=== PATIENT | female | born 1970 ===

== ENCOUNTER 2017-07-31 09:57 | Observation (INO) | payer OTHER ==
[2017-07-31 10:59] LABS: BASO # 0.1 K/uL (0.0-0.2); BASO % 0.9 % (0.0-2.0); EOS # 0.3 K/uL (0.0-0.7); HEMATOCRIT 40.7 % (34.0-47.0); LYMPH # 4.7 K/uL (1.0-4.3); LYMPH % 43.6 % (20.0-40.0); MEAN CELL VOLUME 89.8 fL (81.0-99.0); MEAN CORPUSCULAR HEMOGLOBIN 30.7 pg (27.0-31.0); MEAN CORPUSCULAR HGB CONC 34.2 g/dL (33.0-37.0); MONO % 8.8 % (0.0-10.0); NRBC % 0.1 % (0.0-2.0); RED CELL DISTRIBUTION WIDTH 14.6 % (11.5-14.5); WHITE BLOOD COUNT 10.9 K/uL (4.8-10.8)
[2017-07-31 11:10] LABS: ALB/GLOB RATIO 1.1 (1.0-2.1); ALKALINE PHOSPHATASE 94 U/L (38-126); ALT/SGPT 48 U/L (9-52); AST/SGOT 36 U/L (14-36); BILIRUBIN,TOTAL 0.4 mg/dL (0.2-1.3); BLOOD UREA NITROGEN 11 mg/dL (7-17); CARBON DIOXIDE 24 mmol/L (22-30); CHLORIDE 101 mmol/L (98-107); GFR AFRICAN-AMERICAN > 60; GLUCOSE,RANDOM 180 mg/dL (65-105); POTASSIUM 4.4 mmol/L (3.6-5.2); SODIUM 139 mmol/L (132-148); TOTAL PROTEIN 7.6 g/dL (6.3-8.3)
--- NOTE | 2017-07-31 11:10 | C.PDOC ---
History Of Present Illness 47 y/o female with Hx of Asthma sent by avionics mechanic for evaluation of multiple blisters to hands and feet. pt Patient also reports blurry vision and states she was seen by PMD but is unsure what medication was prescribed to her given antibiotics. pt enedelia historian. reports "had a stroke " a few weeks ago. No other complaints at this time Time Seen by Provider: 07/31/17 10:25 Chief Complaint (Nursing): Abnormal Skin Integrity History Per: Patient History/Exam Limitations: no limitations Onset/Duration Of Symptoms: Days Current Symptoms Are (Timing): Still Present Past Medical History Reviewed: Historical Data, Nursing Documentation, Vital Signs Vital Signs: Last Vital Signs Temp 98 F 07/31/17 16:30 Pulse 72 07/31/17 16:30 Resp 20 07/31/17 16:30 BP 116/73 07/31/17 16:30 Pulse Ox 98 07/31/17 18:29 - Medical History PMH: Arthritis, Asthma, Diabetes Surgical History: Cholecystectomy Family History: States: No Known Family Hx - Social History Hx Tobacco Use: Yes Hx Alcohol Use: No Hx Substance Use: No - Immunization History Hx Tetanus Toxoid Vaccination: No Hx Influenza Vaccination: Yes Hx Pneumococcal Vaccination: Yes Review Of Systems Except As Marked, All Systems Reviewed And Found Negative. Musculoskeletal: Positive for: Hand Pain, Foot Pain Physical Exam - Physical Exam Appears: Non-toxic, No Acute Distress Skin: Warm, Dry, Other (Multiple ulcers to bilateral feet and minimal hands) Head: Atraumatic, Normacephalic Eye(s): bilateral: Normal Inspection Oral Mucosa: Moist Throat: Normal, No Erythema Neck: Normal ROM, Supple Chest: Symmetrical Cardiovascular: Rhythm Regular, No Murmur Respiratory: Normal Breath Sounds, No Rales, No Rhonchi, No Wheezing Extremity: Normal ROM, Capillary Refill (<2 seconds) Neurological/Psych: Oriented x3 ED Course And Treatment - Laboratory Results Result Diagrams: 07/31/17 10:56 07/31/17 10:56 ECG: Interpreted By Me, Viewed By Me ECG Rhythm: Sinus Rhythm ECG Interpretation: No Changes From Prior Rate From EC O2 Sat by Pulse Oximetry: 98 (RA) Pulse Ox Interpretation: Normal Medical Decision Making Medical Decision Making: blurry vision - r/o acute intracranial pathology pt enedelia historian. h/o of small ulcers to b/l feet. sent by her avionics mechanic for ? infection. . reached out to dr manzo. unable to provide further history. pt reports "blurry vision" which she was "told she had a stroke" at another institution 146: case discussed with dr gonsalez. will obs for neuro/ podiatry eval. Disposition - Disposition Disposition: HOSPITALIZED Disposition Time: 01:00 Condition: STABLE - Clinical Impression Clinical Impression: Blurry vision, Foot ulcer - Scribe Statement The provider has reviewed the documentation as recorded by the Luzibmeet Nino All medical record entries made by the Jacklyn were at my direction and personally dictated by me. I have reviewed the chart and agree that the record accurately reflects my personal performance of the history, physical exam, medical decision making, and the department course for this patient. I have also personally directed, reviewed, and agree with the discharge instructions and disposition.
--- NOTE | 2017-07-31 12:10 | CT ---
PROCEDURE: CT HEAD WITHOUT CONTRAST. HISTORY: blurry vision COMPARISON: None available. TECHNIQUE: Axial computed tomography images were obtained through the head/brain without intravenous contrast. Coronal and sagittal reconstructed images. Radiation dose: Total exam DLP = 795.01 duenas mGy-cm. This CT exam was performed using one or more of the following dose reduction techniques: Automated exposure control, adjustment of the mA and/or kV according to patient size, and/or use of iterative reconstruction technique. FINDINGS: HEMORRHAGE: No intracranial hemorrhage. BRAIN: No mass effect or edema. No atrophy or chronic microvascular ischemic changes. VENTRICLES: Unremarkable. No hydrocephalus. CALVARIUM: Unremarkable. PARANASAL SINUSES: Unremarkable as visualized. No significant inflammatory changes. MASTOID AIR CELLS: Unremarkable as visualized. No inflammatory changes. OTHER FINDINGS: None. IMPRESSION: No acute intracranial abnormalities. No significant findings to account for the clinical presentation.
[2017-07-31 12:39] LABS: RBC URINE 4 /hpf (0-3); URINE BILIRUBIN NEGATIVE (NEGATIVE); URINE BLOOD NEGATIVE (NEGATIVE); URINE COLOR Yellow (YELLOW); URINE GLUCOSE (UA) NORMAL (Normal); URINE KETONE TRACE mg/dL (NEGATIVE); URINE LEUKOCYTE ESTERASE 1+ Leu/uL (Negative); URINE PROTEIN NEGATIVE (NEGATIVE); URINE UROBILINOGEN NORMAL mg/dL (0.2-1.0); WBC URINE 9 /hpf (0-5)
[2017-07-31] MEDS ORDERED: Piperacillin/Tazobact 3.375 gm 100 ML IVPB ONE (13:05)
[2017-07-31] MEDS: Piperacillin/Tazobact 3.375 GM in Sodium Chloride 100 ML IVPB SCH ×2 (13:10→20:42)
--- NOTE | 2017-07-31 14:11 | CP.PCM.HP ---
Past Patient History - Past Social History Smoking Status: Light Smoker < 10 Cigarettes Daily - PULMONARY Hx Asthma: Yes - MUSCULOSKELETAL/RHEUMATOLOGICAL Hx Arthritis: Yes - PSYCHIATRIC Hx Substance Use: No - SURGICAL HISTORY Hx Cholecystectomy: Yes - ANESTHESIA Hx Anesthesia: Yes Hx Anesthesia Reactions: No Hx Malignant Hyperthermia: No Meds Allergies/Adverse Reactions: Allergies Allergy/AdvReac Type Severity Reaction Status Date / Time No Known Allergies Allergy Verified 07/31/17 10:14 Results - Vital Signs Recent Vital Signs: Last Vital Signs Temp 98.1 F 07/31/17 10:13 Pulse 90 07/31/17 10:13 Resp 18 07/31/17 10:13 BP 127/77 07/31/17 10:13 Pulse Ox 98 07/31/17 12:47 - Labs Result Diagrams: 07/31/17 10:56 07/31/17 10:56
[2017-07-31] MEDS ORDERED: Vancomycin 1 GM 1 GM/250 ML BAG IVPB ONE (15:25)
[2017-07-31] MEDS ORDERED: INSULIN PUMP CONTROLLER MC PRN (17:00)
[2017-07-31 17:09] VITALS: RESP 20
[2017-07-31] MEDS ORDERED: Moxifloxacin IV 400mg/250ml NS 400 MG/250 ML BAG IVPB SCH ×3 (17:15→18:00)
--- NOTE | 2017-07-31 17:48 | CP.PCM.CON ---
History of Present Illness - History of Present Illness History of Present Illness: Mrs. Whipple is a 47-year-old woman with a past medical history of diabetes ( insulin pump placed 3 weeks ago), asthma and previous stroke that had caused diplopia, but that resolved several years ago. However, she developed diplopia again about 3 months ago and was told that the stroke affected her other eye. The patient did not have any other neurological symptoms or complaints. Review of Systems - Review of Systems All systems: reviewed and no additional remarkable complaints except Past Patient History - Past Social History Smoking Status: Light Smoker < 10 Cigarettes Daily - PULMONARY Hx Asthma: Yes - MUSCULOSKELETAL/RHEUMATOLOGICAL Hx Arthritis: Yes - PSYCHIATRIC Hx Substance Use: No - SURGICAL HISTORY Hx Cholecystectomy: Yes - ANESTHESIA Hx Anesthesia: Yes Hx Anesthesia Reactions: No Hx Malignant Hyperthermia: No Meds Allergies/Adverse Reactions: Allergies Allergy/AdvReac Type Severity Reaction Status Date / Time No Known Allergies Allergy Verified 07/31/17 10:14 - Medications Medications: Current Medications Albuterol/Ipratropium (Duoneb 3 Mg/0.5 Mg (3 Ml) Ud) 3 ml INH RQ6 [facility] Home Med (Insulin Pump Controller [Snap Insulin Pump Controller]) 1 each MC PRN PRN PRN Reason: hyperglycemia Home Med (Lactulose [[place]]) 30 ml PO PRN PRN PRN Reason: Constipation Piperacillin Sod/Tazobactam (Sod 3.375 gm/ Sodium Chloride) 100 mls @ 200 mls/ hr IVPB Q8H [facility] Last Admin: 07/31/17 13:10 Dose: 200 mls/hr Moxifloxacin HCl (Avelox Iv 400mg/250ml Ns) 400 mg in 250 mls @ 167 mls/hr IVPB Q24H [facility] Oxycodone/Acetaminophen (Percocet 5/325 Mg Tab) 1 tab PO TID PRN PRN Reason: Pain, moderate (4-7) Stop: 08/03/17 17:01 Pantoprazole Sodium (Protonix Ec Tab) 40 mg PO DAILY [facility] Physical Exam - Constitutional Appears: Well - Head Exam Head Exam: ATRAUMATIC, NORMAL INSPECTION, NORMOCEPHALIC - Eye Exam Eye Exam: EOMI, Normal appearance, PERRL - ENT Exam ENT Exam: Mucous Membranes Moist, Normal Exam - Neck Exam Neck exam: Positive for: Normal Inspection - Respiratory Exam Respiratory Exam: Clear to Auscultation Bilateral, NORMAL BREATHING PATTERN - Cardiovascular Exam Cardiovascular Exam: REGULAR RHYTHM, +S1, +S2 - GI/Abdominal Exam GI & Abdominal Exam: Normal Bowel Sounds, Soft. 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 Otherwise the remaining cranial nerves appear intact. - Psychiatric Exam Psychiatric exam: Normal Affect, Normal Mood - Skin Skin Exam: Abrasion, Dry, Vesicles Results - Vital Signs Recent Vital Signs: Last Vital Signs Temp 98 F 07/31/17 16:30 Pulse 72 07/31/17 16:30 Resp 20 07/31/17 16:30 BP 116/73 07/31/17 16:30 Pulse Ox 99 07/31/17 16:30 - Labs Result Diagrams: 07/31/17 10:56 07/31/17 10:56 - Imaging and Cardiology CT scan - head Status: Image reviewed by me, Report reviewed by me (No acute findings on CT head. 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 The patient has had these symptoms for 3 months, and they have improved someone. I recommend better glucose control and managing risk factors per primary care. No further neurological work-up is recommended at this time in the inpatient setting. She may follow up with an outpatient neurologist, or neuro-real estate investor. Thank you. Status: Chronic Priority: Medium
[2017-07-31] MEDS: Oxycodone/Acetaminophen 5/325 mg Tab PO PRN (20:43)
[2017-07-31] MEDS: Albuterol-Ipratrop 3 mg / 0.5 (3 ml) UD INH SCH (21:07)
[2017-08-01 00:25] VITALS: TEMP 98.1
[2017-08-01] MEDS: Albuterol-Ipratrop 3 mg / 0.5 (3 ml) UD INH SCH ×3 (01:16→13:11)
[2017-08-01] MEDS: Piperacillin/Tazobact 3.375 GM in Sodium Chloride 100 ML IVPB SCH ×2 (04:38→13:13)
[2017-08-01 08:59] VITALS: BP 127/68; O2SAT 99
[2017-08-01] MEDS ORDERED: Pantoprazole 40 mg EC Tab PO SCH (10:00)
[2017-08-01] MEDS: Oxycodone/Acetaminophen 5/325 mg Tab PO PRN (10:50)
--- NOTE | 2017-08-01 15:49 | CARD ---
APPROVED REPORT EKG Measurement Heart [id number] [id number] <Conclusion> Normal sinus rhythm Normal ECG
[2017-08-01 16:43] VITALS: PULSE 63
--- NOTE | 2017-08-01 17:39 | CP.PCM.PN ---
Subjective - Date & Time of Evaluation Date of Evaluation: 08/01/17 Time of Evaluation: 11:00 - Subjective Subjective: Alert and prientedx3, no acute distress. Objective - Vital Signs/Intake and Output Vital Signs (last 24 hours): Temp Pulse Resp BP Pulse Ox 98.1 F 63 20 127/68 99 08/01/17 07:55 08/01/17 08:05 08/01/17 07:55 08/01/17 07:55 08/01/17 07:55 Intake and Output: 08/01/17 08/01/17 06:59 18:59 Intake Total 300 400 Balance 300 400 - Labs Labs: PT 11.7 SECONDS (9.7-12.2) 07/31/17 10:56 INR 1.0 07/31/17 10:56 APTT 33 SECONDS (21-34) 07/31/17 10:56 Assessment and Plan - Assessment and Plan (Free Text) Assessment: Patient admitted with blurred vision seen and examined. Cleared by neurologyst for discharge. Alert and orientedx3, denies acute complaints. Notified with some blisters on the soles of the feet started for 2-3 weeks, not with acute pain. D/W DR Paige, plan to discharge home and follow up with PMD in 1 week. No acute distress noted.
== END 2017-08-01 16:52 | disposition home or self-care (01) ==
LOC: C.ER 09:57 → C.9E 12:41 → C.6T 15:03
PROVIDERS: ADMIT Internal Medicine Critical Care Medicine; ATTEND Internal Medicine Critical Care Medicine
DX: H49.21 Sixth [abducent] nerve palsy, right eye (principal); I69.398 Other sequelae of cerebral infarction; H53.2 Diplopia; E11.621 Type 2 diabetes mellitus with foot ulcer; J45.909 Unspecified asthma, uncomplicated; Z90.49 Acquired absence of other specified parts of digestive tract; M19.90 Unspecified osteoarthritis, unspecified site; Z79.4 Long term (current) use of insulin; Z96.41 Presence of insulin pump (external) (internal); F17.210 Nicotine dependence, cigarettes, uncomplicated
CPT/HCPCS: 70450; 80053; 81001; 82948; 84484; 84703; 85025; 85610; 85730; 93005; 94640; 96365; 99285; G0378; J2543; J7050

== ENCOUNTER 2018-10-25 13:16 | Inpatient (IN) | payer OTHER ==
[2018-10-25] MEDS ORDERED: Sodium Chloride 0.9% 1,000 ML ONE (15:14)
--- NOTE | 2018-10-25 15:23 | C.PDOC ---
History Of Present Illness 48 y/o female presents to the ER complaining of trouble opening right eye which has been present for the past 3 weeks. Patients states that she has normal vision in her right eye only when she covers her left eye. Patient is also com plaining of headache. Denies having fever, chills, and other complaints at this time. Time Seen by Provider: 10/25/18 14:41 Chief Complaint (Nursing): GI Problem History Per: Patient History/Exam Limitations: no limitations Onset/Duration Of Symptoms: Days Current Symptoms Are (Timing): Still Present Severity: Moderate Past Medical History Reviewed: Historical Data, Nursing Documentation, Vital Signs Vital Signs: Last Vital Signs Temp 98.4 F 10/25/18 13:41 Pulse 90 10/25/18 13:41 Resp 18 10/25/18 13:41 BP 101/70 10/25/18 13:41 Pulse Ox 96 10/25/18 13:41 - Medical History PMH: Arthritis, Asthma, Diabetes Surgical History: Cholecystectomy Family History: States: No Known Family Hx - Social History Hx Tobacco Use: Yes Hx Alcohol Use: No Hx Substance Use: No - Immunization History Hx Tetanus Toxoid Vaccination: No Hx Influenza Vaccination: Yes (10/05/2018) Hx Pneumococcal Vaccination: No Review Of Systems Except As Marked, All Systems Reviewed And Found Negative. Constitutional: Negative for: Fever, Chills Eyes: Positive for: Vision Change Neurological: Positive for: Headache. Negative for: Dizziness Physical Exam - Physical Exam Appears: Other (mild distress) Skin: Normal Color, Warm, Dry Head: Atraumatic, Normacephalic Eye(s): right: Other (eye closed with lid lag, normal right pupil deviation, disconjugate gaze in eye, normal vision), left: Normal Inspection Nose: Normal Oral Mucosa: Moist Neck: Supple Chest: Symmetrical Cardiovascular: Rhythm Regular Respiratory: Normal Breath Sounds, No Rales, No Rhonchi, No Wheezing Gastrointestinal/Abdominal: Normal Exam, Soft, No Tenderness, No Guarding, No Rebound Neurological/Psych: Oriented x3, Normal Speech ED Course And Treatment - Laboratory Results Result Diagrams: 10/25/18 15:39 10/25/18 15:39 Lab Interpretation: Abnormal (+ leukocytosis and) ECG: Interpreted By Dc ECG Rhythm: Sinus Rhythm ECG Interpretation: Normal Rate From EC O2 Sat by Pulse Oximetry: 96 (RA) Pulse Ox Interpretation: Normal - Radiology CXR: Interpreted by Me CXR Interpretation: Yes: No Acute Disease Progress Note: Labs, UA, CXR,and CT-Head ordered. Reevaluation Time: 17:16 Reassessment Condition: Improved - Physician Consult Information Outcome Of Conversation: 1700: d/w d/w Dr. Paige- covering pt's for mat Cook to admit. consider Neuro consult and MRI in AM. 1800: Dr. Paige on Blue List, d/w mat Sparks to admit. NIHSS Stroke Scale 2 - Date/Time Evaluation Performed Date Performed: 10/25/18 Time Performed: 14:40 When Was NIHSS Performed: Baseline - How Severe is the Stroke Level of Consciousness: 0=Alert LOC to Questions: 0=Both comments correct LOC to commands: 0=Obeys both correctly Best Gaze: 1=Partial gaze palsy (+ CN palsy) Visual: 0=No visual loss Facial: 1=Minor asymmetry (+ R eye lid lag (closed)) Motor Arm - Left: 0=No drift Motor Arm - Right: 0=No drift Motor Leg - Left: 0=No drift Motor Leg - Right: 0=No drift Limb Ataxia: 0=Absent Sensory: 0=Normal Best Language: 0=No aphasia Dysarthia: 0=Normal articulation Extinction & Inattention (Neglect): 0=Normal, no object Score: 2 rTPA Inclusion/Exclusion - Refusal of Treatment Patient Refused Treatment: No - Inclusion Criteria for Altepase Patient is 18 years or Older: Yes The Clinical Diagnosis of Ischemic Stroke That is Causing a Potentially Disabling Neurological Deficit: Yes Time of Onset is Well Established to be Less Than 270 Minute Before Treatment Would Begin: No Risk/Benefit Discussed With Patient/Family Member Present: No - Exclusion Criteria for Altepase Uncontrolled Hypertension at Time of Treatment (Systolic BP above 185 or Diastolic BP above 110 mmHg): No Known Bleeding Diathesis Including but Not Limited to: Platelets Below 100 ,000/mm,PTT Above 40 sec After Heparin Use, Current Use of Oral Anitcoagulant With INR Greater Than 1.7 or PT Greater Than 15 secs: No Evidence of Major Acute Infarct With Signs Greater Than 1/3 MCA Territory: No Suspicion of Subarachnoid Hemorrhage on Pretreatment Evaluation Even if CT Head Negative For Hemorrhage: No - Warning to TPA With Conditions Following Conditions Weighed Against Anticipated Benefit: Yes Condition: Stroke Serevity Too Mild Medical Decision Making Medical Decision Making: R nerve palsy and ? R III nerve palsy x 3 weeks. pt high risk considering hyperglycemia, HTN, and elev trig GRIDER is concerning. head CT neg. Disposition Doctor Will See Patient In The: Hospital Counseled Patient/Family Regarding: Studies Performed, Diagnosis - Disposition Disposition: HOSPITALIZED Disposition Time: 17:18 Condition: GOOD Forms: [facility] (Tajik) - Clinical Impression Clinical Impression: Headache, CN palsy, right eye, CN III palsy, right eye - Scribe Statement The provider has reviewed the documentation as recorded by the Luzibmeet De León Provider Attestation: All medical record entries made by the Scribe were at my direction and personally dictated by me. I have reviewed the chart and agree that the record accurately reflects my personal performance of the history, physical exam, medical decision making, and the department course for this patient. I have also personally directed, reviewed, and agree with the discharge instructions and disposition.
[2018-10-25] MEDS: Sodium Chloride 0.9% 1,000 ML IV SCH (15:30)
[2018-10-25 15:52] LABS: BASO % 0.2 % (0.0-2.0); EOS # 0.2 K/uL (0.0-0.7); EOS % 1.5 % (0.0-4.0); LYMPH # 4.7 K/uL (1.0-4.3); LYMPH % 37.8 % (20.0-40.0); MEAN CELL VOLUME 91.5 fL (81.0-99.0); MEAN CORPUSCULAR HEMOGLOBIN 31.2 pg (27.0-31.0); MEAN CORPUSCULAR HGB CONC 34.1 g/dL (33.0-37.0); MONO # 0.9 K/uL (0.0-0.8); MONO % 7.4 % (0.0-10.0); NEUT # 6.6 K/uL (1.8-7.0); NEUT % 53.1 % (50.0-75.0); NRBC % 0.1 % (0.0-2.0); RBC 4.8 Mil/uL (3.80-5.20); RED CELL DISTRIBUTION WIDTH 13.4 % (11.5-14.5); WHITE BLOOD COUNT 12.3 K/uL (4.8-10.8)
[2018-10-25 16:06] LABS: HCG,QUALITATIVE URINE NEGATIVE (NEGATIVE); INR 1.2
[2018-10-25 16:07] LABS: URINE BILIRUBIN NEGATIVE (NEGATIVE); URINE BLOOD NEGATIVE (NEGATIVE); URINE CLARITY Clear (Clear); URINE COLOR Yellow (YELLOW); URINE GLUCOSE (UA) NORMAL (Normal); URINE LEUKOCYTE ESTERASE TRACE Leu/uL (Negative); URINE PROTEIN NEGATIVE (NEGATIVE); URINE UROBILINOGEN NORMAL mg/dL (0.2-1.0)
[2018-10-25 16:08] LABS: SQUAMOUS EPITHIAL 2 /hpf (0-5); URINE BACTERIA RARE (<OCC)
--- NOTE | 2018-10-25 16:08 | RAD ---
Date of service: 10/25/2018 HISTORY: Admission COMPARISON: No prior. FINDINGS: LUNGS: No focal consolidation. The interstitial markings are slightly increased and coarsened; rule out sequela of reactive/inflammatory airway disease or viral illness... There is a small elliptical shaped nodular density left lateral upper lobe located between the anterior 2nd and 3rd ribs that may represent vessel on end artifact. Possibility of a small parenchymal nodule not completely excluded. Repeat radiographs in 2 months could be performed to assess stability PLEURA: No significant pleural effusion identified, no pneumothorax apparent. CARDIOVASCULAR: No aortic atherosclerotic calcification present. Normal cardiac size. No pulmonary vascular congestion. OSSEOUS STRUCTURES: No significant abnormalities. VISUALIZED UPPER ABDOMEN: Normal. OTHER FINDINGS: None. IMPRESSION: No focal consolidation. The interstitial markings are slightly increased and coarsened; rule out sequela of reactive/inflammatory airway disease or viral illness.. There is a small elliptical shaped nodular density left lateral upper lobe located between the anterior 2nd and 3rd ribs that may represent vessel on end artifact. Possibility of a small parenchymal nodule not completely excluded. Repeat radiographs in 2 months could be performed to assess stability
[2018-10-25 16:13] LABS: ALB/GLOB RATIO 1.1 (1.0-2.1); ALBUMIN 4.8 g/dL (3.5-5.0); ALT/SGPT 21 U/L (9-52); AST/SGOT 51 U/L (14-36); BLOOD UREA NITROGEN 15 mg/dL (7-17); CALCIUM 9.5 mg/dl (8.6-10.4); GFR NON-AFRICAN AMERICAN > 60; HDL CHOLESTEROL 36 mg/dL (30-70)
[2018-10-25 16:23] LABS: LDL CHOLESTEROL 99 mg/dL (0-129)
--- NOTE | 2018-10-25 17:00 | CT ---
Date of service: 10/25/2018 PROCEDURE: CT HEAD WITHOUT CONTRAST. HISTORY: R eye lateral deviated x 3 days COMPARISON: Prior noncontrast head CT 07/31/2017. TECHNIQUE: Axial computed tomography images were obtained through the head/brain without intravenous contrast. Radiation dose: Total exam DLP = 991.91 mGy-cm. This CT exam was performed using one or more of the following dose reduction techniques: Automated exposure control, adjustment of the mA and/or kV according to patient size, and/or use of iterative reconstruction technique. FINDINGS: HEMORRHAGE: No intracranial hemorrhage. BRAIN: Normal simpson-white matter differentiation and density are appreciated throughout the cerebrum and cerebellum with the brainstem appearing unremarkable as well. There is no mass effect. There is no suspicious extra-axial fluid collection and the midline brain anatomy appears diffusely unremarkable. VENTRICLES: Unremarkable. No hydrocephalus. CALVARIUM: Unremarkable. PARANASAL SINUSES: Unremarkable as visualized. No significant inflammatory changes. MASTOID AIR CELLS: Unremarkable as visualized. No inflammatory changes. OTHER FINDINGS: None. IMPRESSION: Unremarkable noncontrast CT of the Head. No signal interval change from prior CT without contrast 07/31/2017.
[2018-10-25] MEDS: Morphine 4 MG/ML VIAL IV PRN (19:21)
[2018-10-25] MEDS ORDERED: Oxycodone/Acetaminophen 5/325 mg Tab PO PRN (19:23)
--- NOTE | 2018-10-25 19:23 | CP.PCM.HP ---
Past Patient History - Past Medical History & Family History Past Medical History?: Yes - Past Social History Smoking Status: Light Smoker < 10 Cigarettes Daily - PULMONARY Hx Asthma: Yes - NEUROLOGICAL Hx Neurological Disorder: Yes HX Cerebrovascular Accident: Yes (unknown) - HEENT Hx HEENT Problems: Yes Other/Comment: diplopia (right eye) - ENDOCRINE/METABOLIC Hx Endocrine Disorders: Yes Hx Diabetes Mellitus Type 2: Yes - INTEGUMENTARY Hx Dermatological Problems: Yes Other/Comment: with multiple blisters on bilateral hands and feet - MUSCULOSKELETAL/RHEUMATOLOGICAL Hx Arthritis: Yes - PSYCHIATRIC Hx Substance Use: No - SURGICAL HISTORY Hx Cholecystectomy: Yes - ANESTHESIA Hx Anesthesia: Yes Hx Anesthesia Reactions: No Hx Malignant Hyperthermia: No Meds Allergies/Adverse Reactions: Allergies Allergy/AdvReac Type Severity Reaction Status Date / Time No Known Allergies Allergy Verified 07/31/17 10:14 Results - Vital Signs Recent Vital Signs: Last Vital Signs Temp 98.4 F 10/25/18 13:41 Pulse 80 10/25/18 19:20 Resp 18 10/25/18 19:20 BP 109/60 10/25/18 19:20 Pulse Ox 100 10/25/18 19:20 - Labs Result Diagrams: 10/25/18 15:39 10/25/18 15:39 Labs: Laboratory Results - last 24 hr 10/25/18 10/25/18 10/25/18 15:36 15:39 15:39 WBC 12.3 H RBC 4.80 Hgb 15.0 Hct 43.9 MCV 91.5 MCH 31.2 H MCHC 34.1 RDW 13.4 Plt Count 281 MPV 10.0 Neut % (Auto) 53.1 Lymph % (Auto) 37.8 [place] % (Auto) 7.4 Eos % (Auto) 1.5 Baso % (Auto) 0.2 Neut # (Auto) 6.6 Lymph # (Auto) 4.7 H [place] # (Auto) 0.9 H Eos # (Auto) 0.2 Baso # (Auto) 0.0 PT 13.0 H INR 1.2 APTT 32 Sodium Potassium Chloride Carbon Dioxide Anion Gap BUN Creatinine Est GFR ( Amer) Est GFR (Non-Af Amer) POC Glucose (mg/dL) 178 H Random Glucose Hemoglobin A1c Calcium Total Bilirubin AST ALT Alkaline Phosphatase Troponin I Total Protein Albumin Globulin Albumin/Globulin Ratio Triglycerides Cholesterol LDL Cholesterol Direct HDL Cholesterol Urine Color Urine Clarity Urine pH Ur Specific [place] Urine Protein Urine Glucose (UA) Urine Ketones Urine Blood Urine Nitrate Urine Bilirubin Urine Urobilinogen Ur Leukocyte Esterase Urine WBC (Auto) Urine RBC (Auto) Ur Squamous Epith Cells Urine Bacteria Urine HCG, Qual 10/25/18 10/25/18 10/25/18 15:39 15:39 15:39 WBC RBC Hgb Hct MCV MCH MCHC RDW Plt Count MPV Neut % (Auto) Lymph % (Auto) [place] % (Auto) Eos % (Auto) Baso % (Auto) Neut # (Auto) Lymph # (Auto) [place] # (Auto) Eos # (Auto) Baso # (Auto) PT INR APTT Sodium 137 Potassium 5.3 H Chloride 97 L Carbon Dioxide 27 Anion Gap 17 BUN 15 Creatinine 0.7 Est GFR ( Amer) > 60 Est GFR (Non-Af Amer) > 60 POC Glucose (mg/dL) Random Glucose 200 H Hemoglobin A1c 8.4 H Calcium 9.5 Total Bilirubin 1.2 AST 51 H D ALT 21 Alkaline Phosphatase 122 Troponin I < 0.0120 Total Protein 9.1 H Albumin 4.8 Globulin 4.3 H Albumin/Globulin Ratio 1.1 Triglycerides 190 H Cholesterol 163 LDL Cholesterol Direct 99 HDL Cholesterol 36 Urine Color Yellow Urine Clarity Clear Urine pH 6.0 Ur Specific [place] 1.014 Urine Protein Negative Urine Glucose (UA) Normal Urine Ketones Negative Urine Blood Negative Urine Nitrate Negative Urine Bilirubin Negative Urine Urobilinogen Normal Ur Leukocyte Esterase Trace Urine WBC (Auto) 5 Urine RBC (Auto) 1 Ur Squamous Epith Cells 2 Urine Bacteria Rare Urine HCG, Qual Negative
[2018-10-25] MEDS: MethylPREDNISolone 40 mg Vial IVP SCH (21:43)
[2018-10-26] MEDS: Morphine 4 MG/ML VIAL IV PRN (01:16)
[2018-10-26] MEDS: Sodium Chloride 0.9% 1,000 ML IV SCH ×2 (04:43→11:54)
[2018-10-26] MEDS: MethylPREDNISolone 40 mg Vial IVP SCH ×3 (05:35→21:24)
[2018-10-26] MEDS: Albuterol-Ipratrop 3 mg / 0.5 (3 ml) UD INH SCH ×4 (06:32→19:30)
--- NOTE | 2018-10-26 07:28 | CP.PCM.CON ---
History of Present Illness - History of Present Illness History of Present Illness: CONSULTATION DICTATED ISOLATED III CN PALSY - DM IF MRI BRAIN IS NEGATIVE FOR MASS OR OTHER PATHOLOGY FOR HER PROBLEM IF MEDICALLY STABLE D/C HOME DIABETIC AND WEIGHT CONTROL Past Patient History - Past Medical History & Family History Past Medical History?: Yes - Past Social History Smoking Status: Light Smoker < 10 Cigarettes Daily - CARDIAC Hx Cardiac Disorders: No - PULMONARY Hx Respiratory Disorders: Yes Hx Asthma: Yes - NEUROLOGICAL Hx Neurological Disorder: Yes HX Cerebrovascular Accident: Yes (unknown) - HEENT Hx HEENT Problems: Yes Other/Comment: diplopia (right eye) - RENAL Hx Chronic Kidney Disease: No - ENDOCRINE/METABOLIC Hx Endocrine Disorders: Yes Hx Diabetes Mellitus Type 2: Yes - HEMATOLOGICAL/ONCOLOGICAL Hx Blood Disorders: No - INTEGUMENTARY Hx Dermatological Problems: Yes Other/Comment: with multiple blisters on bilateral hands and feet - MUSCULOSKELETAL/RHEUMATOLOGICAL Hx Musculoskeletal Disorders: Yes Hx Arthritis: Yes Hx Falls: No - GASTROINTESTINAL Hx Gastrointestinal Disorders: No - GENITOURINARY/GYNECOLOGICAL Hx Genitourinary Disorders: No - PSYCHIATRIC Hx Psychophysiologic Disorder: No Hx Substance Use: No - SURGICAL HISTORY Hx Surgeries: Yes Hx Cholecystectomy: Yes - ANESTHESIA Hx Anesthesia: Yes Hx Anesthesia Reactions: No Hx Malignant Hyperthermia: No Meds Allergies/Adverse Reactions: Allergies Allergy/AdvReac Type Severity Reaction Status Date / Time No Known Allergies Allergy Verified 07/31/17 10:14 - Medications Medications: Current Medications Albuterol/Ipratropium (Duoneb 3 Mg/0.5 Mg (3 Ml) Ud) 3 ml INH RQ6 [facility] Last Admin: 10/26/18 06:32 Dose: Not Given Aspirin (Aspirin) 325 mg PO DAILY [facility] Sodium Chloride (Sodium Chloride 0.9%) 1,000 mls @ 100 mls/hr IV .Q10H [facility] Last Admin: 10/26/18 04:43 Dose: Not Given Methylprednisolone (Solu-Medrol) 40 mg IVP Q8 [facility] Last Admin: 10/26/18 05:35 Dose: 40 mg Morphine Sulfate (Morphine) 2 mg IV Q4 PRN PRN Reason: Pain, severe (8-10) Last Admin: 10/26/18 01:16 Dose: 2 mg Oxycodone/Acetaminophen (Percocet 5/325 Mg Tab) 1 tab PO TID PRN PRN Reason: Pain, moderate (4-7) Stop: 10/28/18 19:24 Pantoprazole Sodium (Protonix Ec Tab) 40 mg PO DAILY [facility] Rosuvastatin Calcium (Crestor) 5 mg PO HS [facility] Last Admin: 10/25/18 21:43 Dose: 5 mg Tiotropium [place] (Spiriva) 18 mcg INH RQ24 [facility] Results - Vital Signs Recent Vital Signs: Last Vital Signs Temp 98.5 F 10/26/18 00:25 Pulse 80 10/26/18 00:25 Resp 18 10/26/18 00:25 BP 126/64 10/26/18 00:25 Pulse Ox 97 10/26/18 00:25 - Labs Result Diagrams: 10/25/18 15:39 10/25/18 15:39 Labs: Laboratory Results - last 24 hr 10/25/18 10/25/18 10/25/18 15:36 15:39 15:39 WBC 12.3 H RBC 4.80 Hgb 15.0 Hct 43.9 MCV 91.5 MCH 31.2 H MCHC 34.1 RDW 13.4 Plt Count 281 MPV 10.0 Neut % (Auto) 53.1 Lymph % (Auto) 37.8 [place] % (Auto) 7.4 Eos % (Auto) 1.5 Baso % (Auto) 0.2 Neut # (Auto) 6.6 Lymph # (Auto) 4.7 H [place] # (Auto) 0.9 H Eos # (Auto) 0.2 Baso # (Auto) 0.0 PT 13.0 H INR 1.2 APTT 32 Sodium Potassium Chloride Carbon Dioxide Anion Gap BUN Creatinine Est GFR ( Amer) Est GFR (Non-Af Amer) POC Glucose (mg/dL) 178 H Random Glucose Hemoglobin A1c Calcium Total Bilirubin AST ALT Alkaline Phosphatase Troponin I Total Protein Albumin Globulin Albumin/Globulin Ratio Triglycerides Cholesterol LDL Cholesterol Direct HDL Cholesterol Urine Color Urine Clarity Urine pH Ur Specific [place] Urine Protein Urine Glucose (UA) Urine Ketones Urine Blood Urine Nitrate Urine Bilirubin Urine Urobilinogen Ur Leukocyte Esterase Urine WBC (Auto) Urine RBC (Auto) Ur Squamous Epith Cells Urine Bacteria Urine HCG, Qual 10/25/18 10/25/18 10/25/18 15:39 15:39 15:39 WBC RBC Hgb Hct MCV MCH MCHC RDW Plt Count MPV Neut % (Auto) Lymph % (Auto) [place] % (Auto) Eos % (Auto) Baso % (Auto) Neut # (Auto) Lymph # (Auto) [place] # (Auto) Eos # (Auto) Baso # (Auto) PT INR APTT Sodium 137 Potassium 5.3 H Chloride 97 L Carbon Dioxide 27 Anion Gap 17 BUN 15 Creatinine 0.7 Est GFR ( Amer) > 60 Est GFR (Non-Af Amer) > 60 POC Glucose (mg/dL) Random Glucose 200 H Hemoglobin A1c 8.4 H Calcium 9.5 Total Bilirubin 1.2 AST 51 H D ALT 21 Alkaline Phosphatase 122 Troponin I < 0.0120 Total Protein 9.1 H Albumin 4.8 Globulin 4.3 H Albumin/Globulin Ratio 1.1 Triglycerides 190 H Cholesterol 163 LDL Cholesterol Direct 99 HDL Cholesterol 36 Urine Color Yellow Urine Clarity Clear Urine pH 6.0 Ur Specific [place] 1.014 Urine Protein Negative Urine Glucose (UA) Normal Urine Ketones Negative Urine Blood Negative Urine Nitrate Negative Urine Bilirubin Negative Urine Urobilinogen Normal Ur Leukocyte Esterase Trace Urine WBC (Auto) 5 Urine RBC (Auto) 1 Ur Squamous Epith Cells 2 Urine Bacteria Rare Urine HCG, Qual Negative 10/25/18 10/26/18 21:22 06:32 WBC RBC Hgb Hct MCV MCH MCHC RDW Plt Count MPV Neut % (Auto) Lymph % (Auto) [place] % (Auto) Eos % (Auto) Baso % (Auto) Neut # (Auto) Lymph # (Auto) [place] # (Auto) Eos # (Auto) Baso # (Auto) PT INR APTT Sodium Potassium Chloride Carbon Dioxide Anion Gap BUN Creatinine Est GFR ( Amer) Est GFR (Non-Af Amer) POC Glucose (mg/dL) 202 H 360 H Random Glucose Hemoglobin A1c Calcium Total Bilirubin AST ALT Alkaline Phosphatase Troponin I Total Protein Albumin Globulin Albumin/Globulin Ratio Triglycerides Cholesterol LDL Cholesterol Direct HDL Cholesterol Urine Color Urine Clarity Urine pH Ur Specific [place] Urine Protein Urine Glucose (UA) Urine Ketones Urine Blood Urine Nitrate Urine Bilirubin Urine Urobilinogen Ur Leukocyte Esterase Urine WBC (Auto) Urine RBC (Auto) Ur Squamous Epith Cells Urine Bacteria Urine HCG, Qual
[2018-10-26] MEDS ORDERED: Tiotropium 18 mcg Cap For Inhalation INH SCH (08:00)
--- NOTE | 2018-10-26 09:14 | CON ---
DATE: 10/26/2018 ATTENDING PHYSICIAN: Esther Bello MD LOCATION: The patient's room number 562, bed A. TIME OF EVALUATION: 07:10 a.m. NEUROLOGICAL PROBLEM: Inability to open her right eye. CHIEF COMPLAINT: The patient was brought into [facility] with history of inability to open her eye. When opens forcibly, she does see double vision. From neurological point of view, I was called in to evaluate her for further management. HISTORY OF PRESENT ILLNESS: The patient is a 48-year-old moderately obese, right-handed , Ukrainian-speaking [place] female, presenting with inability to open her eyes since 10/07/2018. She had a preceding flu vaccine and viral syndrome 3 days prior to onset of this problem. She also initially had a headache with this. She was admitted in medical center. She was admitted for 3 days, and she did have extensive workup, and she was told she will get better, and she was advised to see keg filler. She saw keg filler. She was told that at least 2-3 months will take in order to get better. At present, she has similar symptoms. The headache is not that bad. No focal weakness of her arm and legs. No speech impairment. No history of involuntary movements. PAST MEDICAL HISTORY: Dyslipidemia and [id number] diabetes mellitus. ALLERGIES: NO KNOWN ALLERGIES. REVIEW OF SYSTEMS: Twelve-point system being reviewed. From neuro, inability to open her eye and double vision. MEDICATIONS: Aspirin, Crestor, morphine, Percocet, Protonix, Solu-Medrol, and Spiriva. PHYSICAL EXAMINATION: VITAL SIGNS: Blood pressure 126/64, mean artery pressure of 84, respiratory rate 18, and temperature afebrile. NECK: Supple. No carotid bruit. HEART: Heart sounds regular. CHEST: Fair air entry. EXTREMITIES: No edema in the legs. NEUROLOGIC: Mental status examination: She is awake, alert, and oriented to person, place, and time. Speech is clear. Naming, repetition, fluency, comprehension all within normal. Cranial nerve examination: Visual field responds to visual threat. Right eye has ptosis. Pupils reactive to light on passively opening her right eyelid. Right eye is showing exotropia. Markedly decreased adduction upgaze. Pupils reactive to light. Corneal reflexes are present. No facial sensory deficit. Mild facial asymmetry manifesting with the flattening of the right nasolabial fold. Hearing is normal. Tongue is midline. Good gag. Motor examination: Outstretched hands with eyes closed. No drift noted. Mild dysmetria noted on finger-nose testing. Strength is equal in all four extremities. Deep tendon reflexes are absent. Plantars are downgoing. 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 No cortical sensory loss. Gait is deferred at this time. CONCLUSION: The patient has been presenting, as per neurological examination, isolated cranial nerve palsy in her right eye which is probably secondary to her diabetes mellitus. However, other possible causes including space-occupying lesion and orbital pathology should be ruled out. LABORATORY DATA: Blood workup: WBC 12.3, hemoglobin 15.2, hematocrit 43.9, platelets 281. PT 13.2, INR 1.2, PTT 32. Sodium 137, potassium 5.3, chloride 197, bicarbonate 27, BUN 15, creatinine 0.7, GFR more than 60, glucose 360. Hemoglobin A1c 8.4. ALT 21, protein 9.1. Triglyceride 190, cholesterol 163, LDL 99, HDL 36. Urine shows normal exam. RECOMMENDATIONS: 1. The patient does need MRI of the brain with and without gadolinium and orbits to rule out any structural cause. The patient should have an MR angiogram to rule out any vascular pathology. 2. Diabetic control. 3. Continue stroke prophylaxis as she has been getting. 4. Weight control also discussed with the patient. If MRI is negative for structural cause, the patient can be discharged. If medically stable, continue diabetic control. Steroid is in no role as steroids can be stopped at present. Rest of the workup is as stated in the patient's reports. The patient will be followed closely while she is in the hospital. Derek Tejeda MD [facility]
[2018-10-26] MEDS: Pantoprazole 40 mg EC Tab PO SCH (09:19)
[2018-10-26] MEDS: Enoxaparin 40 mg Syringe SC SCH (09:20)
[2018-10-26] MEDS ORDERED: Dextrose 50% SYRINGE Inj (50 ml) IV PRN (11:55)
[2018-10-26] MEDS ORDERED: Glucagon Recombinant 1 mg Inj IM PRN (11:55)
[2018-10-26 12:00] LABS: FREE T4 1.42 ng/dL (0.78-2.19)
[2018-10-26] MEDS: (Novolog) Insulin Aspart, Recombinant 100 u/ml 10 ml vial SC SCH ×4 (13:10→21:24)
--- NOTE | 2018-10-26 16:15 | CP.PCM.PN ---
Subjective - Date & Time of Evaluation Date of Evaluation: 10/26/18 Time of Evaluation: 08:30 - Subjective Subjective: clinically same Objective - Vital Signs/Intake and Output Vital Signs (last 24 hours): Temp Pulse Resp BP Pulse Ox 99.2 F 94 H 20 130/70 94 L 10/26/18 16:00 10/26/18 16:00 10/26/18 16:00 10/26/18 16:00 10/26/18 16:00 Intake and Output: 10/26/18 10/26/18 06:59 18:59 Intake Total 1470 800 Balance 1470 800 - Medications Medications: Current Medications Albuterol/Ipratropium (Duoneb 3 Mg/0.5 Mg (3 Ml) Ud) 3 ml INH RQ6 [facility] Last Admin: 10/26/18 13:40 Dose: 3 ml Aspirin (Aspirin) 325 mg PO DAILY [facility] Last Admin: 10/26/18 09:19 Dose: 325 mg Dextrose (Dextrose 50% Inj) 0 ml IV STAT PRN; Protocol PRN Reason: Hypoglycemia Protocol Dextrose (Glutose 15) 0 gm PO ONCE PRN; Protocol PRN Reason: Hypoglycemia Protocol Enoxaparin Sodium (Lovenox) 40 mg SC DAILY [facility] Last Admin: 10/26/18 09:20 Dose: 40 mg Glucagon (Glucagen Diagnostic Kit) 0 mg IM STAT PRN; Protocol PRN Reason: Hypoglycemia Protocol Sodium Chloride (Sodium Chloride 0.9%) 1,000 mls @ 100 mls/hr IV .Q10H [facility] Last Admin: 10/26/18 11:54 Dose: 100 mls/hr Dextrose (Dextrose 5% In Water 1000 Ml) 1,000 mls @ 0 mls/hr IV .Q0M PRN; Protocol PRN Reason: Hypoglycemia Protocol Insulin Aspart (Novolog) 0 unit SC ACHS [facility]; Protocol Last Admin: 10/26/18 13:10 Dose: 10 units Insulin Aspart (Novolog) 10 unit SC HS [facility] Insulin Aspart (Novolog) 25 unit SC AC [facility] Metformin HCl (Glucophage) 1,000 mg PO BIDCC [facility] Methylprednisolone (Solu-Medrol) 40 mg IVP Q8 [facility] Last Admin: 10/26/18 13:10 Dose: 40 mg Morphine Sulfate (Morphine) 2 mg IV Q4 PRN PRN Reason: Pain, severe (8-10) Oxycodone/Acetaminophen (Percocet 5/325 Mg Tab) 1 tab PO TID PRN PRN Reason: Pain, moderate (4-7) Stop: 10/28/18 19:24 Pantoprazole Sodium (Protonix Ec Tab) 40 mg PO DAILY [facility] Last Admin: 10/26/18 09:19 Dose: 40 mg Rosuvastatin Calcium (Crestor) 5 mg PO HS [facility] Last Admin: 10/25/18 21:43 Dose: 5 mg Tiotropium [place] (Spiriva) 18 mcg INH RQ24 [facility] - Labs Labs: 10/25/18 15:39 10/25/18 15:39 PT 13.0 SECONDS (9.7-12.2) H 10/25/18 15:39 INR 1.2 10/25/18 15:39 APTT 32 SECONDS (21-34) 10/25/18 15:39 - Constitutional Appears: Well - Head Exam Head Exam: ATRAUMATIC, NORMAL INSPECTION, NORMOCEPHALIC - Eye Exam Eye Exam: EOMI, Normal appearance, PERRL Pupil Exam: NORMAL ACCOMODATION, PERRL - ENT Exam ENT Exam: Mucous Membranes Moist, Normal Exam - Neck Exam Neck Exam: Full ROM, Normal Inspection. absent: Lymphadenopathy - Respiratory Exam Respiratory Exam: Decreased Breath Sounds - Cardiovascular Exam Cardiovascular Exam: REGULAR RHYTHM, +S1, +S2 - GI/Abdominal Exam GI & Abdominal Exam: Soft, Diminished Bowel Sounds - Rectal Exam Rectal Exam: Deferred
[2018-10-26] MEDS ORDERED: (Novolog) Insulin Aspart, Recombinant 100 u/ml 10 ml vial SC SCH ×2 (16:30→22:00)
--- NOTE | 2018-10-26 17:02 | CP.PCM.CON ---
Past Patient History - Past Medical History & Family History Past Medical History?: Yes - Past Social History Smoking Status: Light Smoker < 10 Cigarettes Daily - CARDIAC Hx Cardiac Disorders: No - PULMONARY Hx Respiratory Disorders: Yes Hx Asthma: Yes - NEUROLOGICAL Hx Neurological Disorder: Yes HX Cerebrovascular Accident: Yes (unknown) - HEENT Hx HEENT Problems: Yes Other/Comment: diplopia (right eye) - RENAL Hx Chronic Kidney Disease: No - ENDOCRINE/METABOLIC Hx Endocrine Disorders: Yes Hx Diabetes Mellitus Type 2: Yes - HEMATOLOGICAL/ONCOLOGICAL Hx Blood Disorders: No - INTEGUMENTARY Hx Dermatological Problems: Yes Other/Comment: with multiple blisters on bilateral hands and feet - MUSCULOSKELETAL/RHEUMATOLOGICAL Hx Musculoskeletal Disorders: Yes Hx Arthritis: Yes Hx Falls: No - GASTROINTESTINAL Hx Gastrointestinal Disorders: No - GENITOURINARY/GYNECOLOGICAL Hx Genitourinary Disorders: No - PSYCHIATRIC Hx Psychophysiologic Disorder: No Hx Substance Use: No - SURGICAL HISTORY Hx Surgeries: Yes Hx Cholecystectomy: Yes - ANESTHESIA Hx Anesthesia: Yes Hx Anesthesia Reactions: No Hx Malignant Hyperthermia: No Meds Allergies/Adverse Reactions: Allergies Allergy/AdvReac Type Severity Reaction Status Date / Time No Known Allergies Allergy Verified 07/31/17 10:14 - Medications Medications: Current Medications Albuterol/Ipratropium (Duoneb 3 Mg/0.5 Mg (3 Ml) Ud) 3 ml INH RQ6 [facility] Last Admin: 10/26/18 13:40 Dose: 3 ml Aspirin (Aspirin) 325 mg PO DAILY [facility] Last Admin: 10/26/18 09:19 Dose: 325 mg Dextrose (Dextrose 50% Inj) 0 ml IV STAT PRN; Protocol PRN Reason: Hypoglycemia Protocol Dextrose (Glutose 15) 0 gm PO ONCE PRN; Protocol PRN Reason: Hypoglycemia Protocol Enoxaparin Sodium (Lovenox) 40 mg SC DAILY [facility] Last Admin: 10/26/18 09:20 Dose: 40 mg Glucagon (Glucagen Diagnostic Kit) 0 mg IM STAT PRN; Protocol PRN Reason: Hypoglycemia Protocol Sodium Chloride (Sodium Chloride 0.9%) 1,000 mls @ 100 mls/hr IV .Q10H [facility] Last Admin: 10/26/18 11:54 Dose: 100 mls/hr Dextrose (Dextrose 5% In Water 1000 Ml) 1,000 mls @ 0 mls/hr IV .Q0M PRN; Protocol PRN Reason: Hypoglycemia Protocol Insulin Aspart (Novolog) 0 unit SC ACHS [facility]; Protocol Last Admin: 10/26/18 13:10 Dose: 10 units Insulin Aspart (Novolog) 10 unit SC HS [facility] Insulin Aspart (Novolog) 25 unit SC AC [facility] Metformin HCl (Glucophage) 1,000 mg PO BIDCC [facility] Methylprednisolone (Solu-Medrol) 40 mg IVP Q8 [facility] Last Admin: 10/26/18 13:10 Dose: 40 mg Morphine Sulfate (Morphine) 2 mg IV Q4 PRN PRN Reason: Pain, severe (8-10) Oxycodone/Acetaminophen (Percocet 5/325 Mg Tab) 1 tab PO TID PRN PRN Reason: Pain, moderate (4-7) Stop: 10/28/18 19:24 Pantoprazole Sodium (Protonix Ec Tab) 40 mg PO DAILY [facility] Last Admin: 10/26/18 09:19 Dose: 40 mg Rosuvastatin Calcium (Crestor) 5 mg PO HS [facility] Last Admin: 10/25/18 21:43 Dose: 5 mg Tiotropium [place] (Spiriva) 18 mcg INH RQ24 [facility] Results - Vital Signs Recent Vital Signs: Last Vital Signs Temp 99.2 F 10/26/18 16:00 Pulse 94 H 10/26/18 16:00 Resp 20 10/26/18 16:00 BP 130/70 10/26/18 16:00 Pulse Ox 94 L 10/26/18 16:00 - Labs Result Diagrams: 10/25/18 15:39 10/25/18 15:39 Labs: Laboratory Results - last 24 hr 10/25/18 10/26/18 10/26/18 21:22 06:32 11:23 ESR 35 H POC Glucose (mg/dL) 202 H 360 H Hemoglobin A1c C-React Prot High Sens Homocysteine Free T4 TSH 3rd Generation 10/26/18 10/26/18 10/26/18 11:23 11:23 11:23 ESR POC Glucose (mg/dL) Hemoglobin A1c 8.6 H C-React Prot High Sens 2.62 Homocysteine 6.2 Free T4 1.42 TSH 3rd Generation 0.02 L 10/26/18 11:37 ESR POC Glucose (mg/dL) 496 H* Hemoglobin A1c C-React Prot High Sens Homocysteine Free T4 TSH 3rd Generation
[2018-10-26] MEDS ORDERED: Gadodiamide 287 mg/ml 20 ml IV ONE (17:26)
--- NOTE | 2018-10-26 18:02 | MRI ---
Date of service: 10/26/2018 PROCEDURE: Magnetic Resonance Angiography Brain HISTORY: Vasculitis COMPARISON: None available. TECHNIQUE: 3D time of flight MR angiography of the intracranial arteries was performed. Rotating maximum intensity projection images were generated. FINDINGS: INTERNAL CAROTID ARTERIES: Unremarkable. The skull base, petrous, cavernous and supraclinoid segments are bilaterally widely patient. ANTERIOR CEREBRAL ARTERIES: Unremarkable. A1 and A2 segments are widely patent. Smaller distal branches unremarkable, as visualized. Suspect small infundibulum arising from the superior aspect proximal 1/3--1/2 of the right A1 segment. The MIDDLE CEREBRAL ARTERIES: Unremarkable. M1 and M2 segments are widely patent. Perisylvian branches grossly symmetric.. Small infundibulum arising from the mid inferior aspect of the right M1 segment. POSTERIOR CIRCULATION: Basilar Artery: Unremarkable. Distal Vertebral Arteries: Unremarkable. Posterior Cerebral Arteries: Unremarkable. Posterior Inferior Cerebellar Arteries: Unremarkable. ANEURYSM/ VASCULAR MALFORMATIONS: No evidence of large aneurysm nor vascular malformation. OTHER FINDINGS: None. IMPRESSION: No evidence of occlusion nor significant stenosis of the major the distal internal carotid arteries of, [id number] or proximal margins of the major branch vessels. Note that the distal branch vessels are not well delineated on this exam though are relatively symmetric. If vasculitis is suspected clinically, traditional/catheter four-vessel cerebral angiography may be ultimately required. Suspect small infundibulum arising from the superior margin right A1 segment and possibly the inferior margin of the right M1 segment.. Follow-up CTA could be performed for further evaluation
--- NOTE | 2018-10-26 18:26 | MRI ---
Date of service: 10/26/2018 PROCEDURE: MRI BRAIN WITH AND WITHOUT CONTRAST HISTORY: mass? COMPARISON: Noncontrast head CT from 10/25/2018. TECHNIQUE: Multiplanar, multisequence MR images of the brain were obtained with and without intravenous contrast enhancement. 18 mL Omniscan was injected intravenously. FINDINGS: HEMORRHAGE: None DWI: No evidence of an acute or early subacute infarction. BRAIN PARENCHYMA: There are several T2/FLAIR hyperintense foci in the left richardson radiata. There are tiny T2/FLAIR hyperintense foci in bifrontal and parietal supratentorial white matter. There is no mass, mass effect or abnormal extra-axial fluid collection. The midline sagittal structures are normal. ENHANCEMENT: No abnormal intracranial enhancement. VENTRICLES: There is mild age advanced global parenchymal volume loss and proportionate enlargement of the ventricles and cortical sulci. CRANIUM: There is normal bone marrow signal pattern. ORBITS: Grossly unremarkable. PARANASAL SINUSES/MASTOIDS: Mild mucosal thickening in the left frontal sinus and ethmoid air cells. Small mastoid effusions. VASCULAR SYSTEM: There are normal signal voids in the larger intracranial arteries. OTHER FINDINGS: None . IMPRESSION: No acute intracranial abnormality. Multifocal white matter changes in the left richardson radiata and small foci of bifrontal and parietal subcortical white matter changes are strictly nonspecific, the differential considerations include migraine headache effect, gliosis, early chronic microangiopathic changes, Lyme disease, vasculitis and demyelinating disease including multiple sclerosis. Clinical correlation and follow-up is advised.
--- NOTE | 2018-10-26 21:57 | CARD ---
APPROVED REPORT Date of service: 10/25/2018 EKG Measurement Heart [id number] <Conclusion> Normal sinus rhythm Normal ECG
[2018-10-27] MEDS: Albuterol-Ipratrop 3 mg / 0.5 (3 ml) UD INH SCH ×4 (01:11→19:45)
[2018-10-27] MEDS: Sodium Chloride 0.9% 1,000 ML IV SCH ×3 (04:41→17:51)
[2018-10-27] MEDS: MethylPREDNISolone 40 mg Vial IVP SCH ×3 (05:13→21:25)
[2018-10-27 07:26] LABS: BASO # 0.1 K/uL (0.0-0.2); BASO % 0.5 % (0.0-2.0); HEMOGLOBIN 13.6 g/dL (11.0-16.0); LYMPH # 2.2 K/uL (1.0-4.3); LYMPH % 15.8 % (20.0-40.0); MEAN CELL VOLUME 92.1 fL (81.0-99.0); MEAN CORPUSCULAR HEMOGLOBIN 31.4 pg (27.0-31.0); MEAN CORPUSCULAR HGB CONC 34.1 g/dL (33.0-37.0); MEAN PLATELET VOLUME 10.2 fL (7.2-11.7); MONO # 0.5 K/uL (0.0-0.8); MONO % 3.3 % (0.0-10.0); NEUT # 11.3 K/uL (1.8-7.0); NEUT % 80.4 % (50.0-75.0); RBC 4.34 Mil/uL (3.80-5.20); RED CELL DISTRIBUTION WIDTH 13.2 % (11.5-14.5); WHITE BLOOD COUNT 14.1 K/uL (4.8-10.8)
[2018-10-27 07:59] LABS: ALB/GLOB RATIO 1.2 (1.0-2.1); ALBUMIN 4.3 g/dL (3.5-5.0); ALT/SGPT 24 U/L (9-52); AST/SGOT 23 U/L (14-36); BLOOD UREA NITROGEN 19 mg/dL (7-17); GFR NON-AFRICAN AMERICAN > 60
[2018-10-27] MEDS: (Novolog) Insulin Aspart, Recombinant 100 u/ml 10 ml vial SC SCH ×6 (08:21→21:27)
[2018-10-27] MEDS: Enoxaparin 40 mg Syringe SC SCH (09:15)
[2018-10-27] MEDS: Pantoprazole 40 mg EC Tab PO SCH (09:15)
--- NOTE | 2018-10-27 09:33 | PN ---
DATE: 10/27/2018 TIME OF EVALUATION: 07:05 a.m. 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 PHYSICAL EXAMINATION: VITAL SIGNS: Blood pressure 140/73, mean arterial pressure of 95, respiratory rate 18, temperature 98.3 with a pulse rate of 62. The patient's examination, which is unchanged when compared with my previous examination. No sign of long tract sinus present. The patient has bilateral distal symmetric sensory motor neuropathy secondary to her diabetes mellitus. WORKUP: MRI of the brain being reviewed, small vessel disease consistent with her hypertension and uncontrolled diabetes mellitus. No clear evidence of demyelinating process. Angiogram also reviewed. It shows atherosclerotic changes with vasculopathy. RECOMMENDATION: Continue antiplatelets with diabetic control and pressure control. If medically stable, the patient can be discharged and should have a followup visit with me as outpatient. Derek Tejeda MD
--- NOTE | 2018-10-27 12:25 | CP.PCM.CON ---
<Adam Albarran - Last Filed: 10/27/18 15:18> History of Present Illness - History of Present Illness History of Present Illness: Adam Albarran DO, PGY-1 Cardiology Consult Note for Dr. Macdonald Sabrina is a 48 year old female with PMH of asthma, uncontrolled DM2, and TIA presented to ED with a chief complaint of difficulty opening her R eye, which she states has been worsening for the past 3 weeks since Thanksgiving. She states she recently had a viral illness which she believes was worsened by her receiving the flu shot about 3 weeks ago. She also endorses a R-sided GRIDER which has been worsening over the past 3 weeks. She describes the GRIDER as in the area of the right eye. She states OTC motrin has not helped with the pain and the pain is constant. She reports some blurred vision in addition to difficulty opening her R eye. She denies fever/chills, CP, SOB, dizziness, peripheral numbness/tingling, slurred speech, weakness, sensory changes, or palpitations. PMH: asthma, uncontrolled DM2, TIA PSH: cholecystectomy Allergies: NKA Fam Hx: father had CAD, sister had CVA Home meds: Metformin 1000 mg BID, Crestor 5 mg HS, ASA 81 mg daily, Novolog 25 u AC and 10 u HS Soc Hx: current 1/2 PPD cigarette smoker, denies alcohol or illicit drug use. Review of Systems - Constitutional Constitutional: absent: Chills, Fever - EENT Eyes: Blind Spots, Blurred Vision, Change in Vision, Photophobia Ears: absent: Decreased Hearing, Disequilibrium - Cardiovascular Cardiovascular: Dyspnea on Exertion. absent: Chest Pain, Chest Pain at Rest, Chest Pain with Activity, Diaphoresis, Dyspnea, Palpitations - Respiratory Respiratory: Dyspnea on Exertion. absent: Cough - Gastrointestinal Gastrointestinal: Abdominal Pain, Nausea, Vomiting - Genitourinary Genitourinary: absent: Change in Urinary Stream, Difficulty Urinating - Musculoskeletal Musculoskeletal: absent: Neck Pain, Numbness - Neurological Neurological: Headaches, Other Visual Disturbances. absent: Abnormal Speech, Memory Loss, Syncope Past Patient History - Past Medical History & Family History Past Medical History?: Yes - Past Social History Smoking Status: Light Smoker < 10 Cigarettes Daily - CARDIAC Hx Cardiac Disorders: No - PULMONARY Hx Respiratory Disorders: Yes Hx Asthma: Yes - NEUROLOGICAL Hx Neurological Disorder: Yes HX Cerebrovascular Accident: Yes (unknown) - HEENT Hx HEENT Problems: Yes Other/Comment: diplopia (right eye) - RENAL Hx Chronic Kidney Disease: No - ENDOCRINE/METABOLIC Hx Endocrine Disorders: Yes Hx Diabetes Mellitus Type 2: Yes - HEMATOLOGICAL/ONCOLOGICAL Hx Blood Disorders: No - INTEGUMENTARY Hx Dermatological Problems: Yes Other/Comment: with multiple blisters on bilateral hands and feet - MUSCULOSKELETAL/RHEUMATOLOGICAL Hx Musculoskeletal Disorders: Yes Hx Arthritis: Yes Hx Falls: No - GASTROINTESTINAL Hx Gastrointestinal Disorders: No - GENITOURINARY/GYNECOLOGICAL Hx Genitourinary Disorders: No - PSYCHIATRIC Hx Psychophysiologic Disorder: No Hx Substance Use: No - SURGICAL HISTORY Hx Surgeries: Yes Hx Cholecystectomy: Yes - ANESTHESIA Hx Anesthesia: Yes Hx Anesthesia Reactions: No Hx Malignant Hyperthermia: No Meds Allergies/Adverse Reactions: Allergies Allergy/AdvReac Type Severity Reaction Status Date / Time No Known Allergies Allergy Verified 07/31/17 10:14 - Medications Medications: Current Medications Albuterol/Ipratropium (Duoneb 3 Mg/0.5 Mg (3 Ml) Ud) 3 ml INH RQ6 [facility] Last Admin: 10/27/18 08:10 Dose: Not Given Aspirin (Aspirin) 325 mg PO DAILY [facility] Last Admin: 10/27/18 09:15 Dose: 325 mg Dextrose (Dextrose 50% Inj) 0 ml IV STAT PRN; Protocol PRN Reason: Hypoglycemia Protocol Dextrose (Glutose 15) 0 gm PO ONCE PRN; Protocol PRN Reason: Hypoglycemia Protocol Enoxaparin Sodium (Lovenox) 40 mg SC DAILY [facility] Last Admin: 10/27/18 09:15 Dose: 40 mg Glucagon (Glucagen Diagnostic Kit) 0 mg IM STAT PRN; Protocol PRN Reason: Hypoglycemia Protocol Sodium Chloride (Sodium Chloride 0.9%) 1,000 mls @ 100 mls/hr IV .Q10H [facility] Last Admin: 10/27/18 04:41 Dose: 100 mls/hr Dextrose (Dextrose 5% In Water 1000 Ml) 1,000 mls @ 0 mls/hr IV .Q0M PRN; Protocol PRN Reason: Hypoglycemia Protocol Insulin Aspart (Novolog) 0 unit SC ACHS [facility]; Protocol Last Admin: 10/27/18 12:00 Dose: 8 units Insulin Aspart (Novolog) 10 unit SC HS [facility] Last Admin: 10/26/18 21:24 Dose: 10 unit Insulin Aspart (Novolog) 25 unit SC AC [facility] Last Admin: 10/27/18 12:00 Dose: 25 unit Metformin HCl (Glucophage) 1,000 mg PO BIDCC [facility] Last Admin: 10/27/18 08:21 Dose: 1,000 mg Methylprednisolone (Solu-Medrol) 40 mg IVP Q8 [facility] Last Admin: 10/27/18 05:13 Dose: 40 mg Morphine Sulfate (Morphine) 2 mg IV Q4 PRN PRN Reason: Pain, severe (8-10) Last Admin: 10/27/18 09:16 Dose: 2 mg Oxycodone/Acetaminophen (Percocet 5/325 Mg Tab) 1 tab PO TID PRN PRN Reason: Pain, moderate (4-7) Stop: 10/28/18 19:24 Pantoprazole Sodium (Protonix Ec Tab) 40 mg PO DAILY [facility] Last Admin: 10/27/18 09:15 Dose: 40 mg Rosuvastatin Calcium (Crestor) 5 mg PO HS [facility] Last Admin: 10/25/18 21:43 Dose: 5 mg Tiotropium [place] (Spiriva) 18 mcg INH RQ24 [facility] Physical Exam - Constitutional Appears: Non-toxic, No Acute Distress Additional comments: R eye closed - Head Exam Head Exam: ATRAUMATIC, NORMOCEPHALIC - Eye Exam Eye Exam: EOMI, Normal appearance, PERRL Additional comments: R eyelid closed, when opened, R eye is deviated upward and outward - ENT Exam ENT Exam: Mucous Membranes Moist - Neck Exam Neck exam: Positive for: Full Rom, Normal Inspection - Respiratory Exam Respiratory Exam: Clear to Auscultation Bilateral, NORMAL BREATHING PATTERN. absent: Rales, Rhonchi, Wheezes - Cardiovascular Exam Cardiovascular Exam: REGULAR RHYTHM, RRR, +S1, +S2. absent: Diastolic murmur, Gallop, Rubs, Systolic Murmur - GI/Abdominal Exam GI & Abdominal Exam: Normal Bowel Sounds, Soft. absent: Tenderness - Extremities Exam Extremities exam: Positive for: normal inspection. Negative for: pedal edema - Back Exam Back exam: FULL ROM, NORMAL INSPECTION - Neurological Exam Neurological exam: Alert, Oriented x3 - Psychiatric Exam Psychiatric exam: Normal Affect, Normal Mood - Skin Skin Exam: Dry, Intact, Warm Results - Vital Signs Recent Vital Signs: Last Vital Signs Temp 97.8 F 10/27/18 07:15 Pulse 89 12/12/18 07:15 Resp 20 10/27/18 07:15 BP 143/81 10/27/18 07:15 Pulse Ox 94 L 10/27/18 07:15 - Labs Result Diagrams: 10/27/18 07:19 10/27/18 07:19 Labs: Laboratory Results - last 24 hr 10/26/18 10/26/18 10/26/18 11:23 11:23 17:52 WBC RBC Hgb Hct MCV MCH MCHC RDW Plt Count MPV Neut % (Auto) Lymph % (Auto) [place] % (Auto) Eos % (Auto) Baso % (Auto) Neut # (Auto) Lymph # (Auto) [place] # (Auto) Eos # (Auto) Baso # (Auto) ESR 35 H Sodium Potassium Chloride Carbon Dioxide Anion Gap BUN Creatinine Est GFR ( Amer) Est GFR (Non-Af Amer) POC Glucose (mg/dL) 442 H* Random Glucose Calcium Total Bilirubin AST ALT Alkaline Phosphatase Total Protein Albumin Globulin Albumin/Globulin Ratio Homocysteine 6.2 10/26/18 10/27/18 10/27/18 20:58 02:50 06:21 WBC RBC Hgb Hct MCV MCH MCHC RDW Plt Count MPV Neut % (Auto) Lymph % (Auto) [place] % (Auto) Eos % (Auto) Baso % (Auto) Neut # (Auto) Lymph # (Auto) [place] # (Auto) Eos # (Auto) Baso # (Auto) ESR Sodium Potassium Chloride Carbon Dioxide Anion Gap BUN Creatinine Est GFR ( Amer) Est GFR (Non-Af Amer) POC Glucose (mg/dL) 335 H 310 H 357 H Random Glucose Calcium Total Bilirubin AST ALT Alkaline Phosphatase Total Protein Albumin Globulin Albumin/Globulin Ratio Homocysteine 10/27/18 10/27/18 10/27/18 07:19 07:19 11:06 WBC 14.1 H RBC 4.34 Hgb 13.6 Hct 40.0 MCV 92.1 MCH 31.4 H MCHC 34.1 RDW 13.2 Plt Count 245 MPV 10.2 Neut % (Auto) 80.4 H Lymph % (Auto) 15.8 L [place] % (Auto) 3.3 Eos % (Auto) 0.0 Baso % (Auto) 0.5 Neut # (Auto) 11.3 H Lymph # (Auto) 2.2 [place] # (Auto) 0.5 Eos # (Auto) 0.0 Baso # (Auto) 0.1 ESR Sodium 135 Potassium 4.6 Chloride 99 Carbon Dioxide 23 Anion Gap 18 BUN 19 H Creatinine 0.7 Est GFR ( Amer) > 60 Est GFR (Non-Af Amer) > 60 POC Glucose (mg/dL) 368 H Random Glucose 402 H* D Calcium 9.0 Total Bilirubin 0.4 AST 23 ALT 24 Alkaline Phosphatase 110 Total Protein 7.8 Albumin 4.3 Globulin 3.5 Albumin/Globulin Ratio 1.2 Homocysteine Assessment & Plan - Assessment and Plan (Free Text) Assessment: 48 yo F with PMH of asthma, TIA, and uncontrolled DM2 (with peripheral neuropathy) presents for evaluation of R cranial nerve palsy/difficulty opening R eye. 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 Macdonald to have normal EF and no suspicious valvular lesions No additional inpatient cardiac w/u warranted at this time Recommend f/u with Dr. Macdonald on outpatient basis for event monitor Additional recs per primary and neurology Case and plan reviewed and discussed with my attending Dr. Torres Albarran, IM Resident PGY-1 <Juan Macdonald - Last Filed: 10/29/18 07:19> Meds - Medications Medications: Current Medications Albuterol/Ipratropium (Duoneb 3 Mg/0.5 Mg (3 Ml) Ud) 3 ml INH RQ6 PRN PRN Reason: Shortness of Breath Aspirin (Ecotrin) 81 mg PO DAILY [facility] Dextrose (Dextrose 50% Inj) 0 ml IV STAT PRN; Protocol PRN Reason: Hypoglycemia Protocol Dextrose (Glutose 15) 0 gm PO ONCE PRN; Protocol PRN Reason: Hypoglycemia Protocol Enoxaparin Sodium (Lovenox) 40 mg SC DAILY [facility] Last Admin: 10/28/18 10:27 Dose: 40 mg Glucagon (Glucagen Diagnostic Kit) 0 mg IM STAT PRN; Protocol PRN Reason: Hypoglycemia Protocol Dextrose (Dextrose 5% In Water 1000 Ml) 1,000 mls @ 0 mls/hr IV .Q0M PRN; Protocol PRN Reason: Hypoglycemia Protocol Sodium Chloride (Sodium Chloride 0.9%) 1,000 mls @ 70 mls/hr IV .[id number] [facility] Last Admin: 10/28/18 16:49 Dose: Not Given Insulin Aspart (Novolog) 10 unit SC AC [facility] Last Admin: 10/28/18 17:49 Dose: 10 unit Insulin Glargine (Lantus) 10 unit SC HS [facility] Last Admin: 10/28/18 21:22 Dose: 10 unit Insulin Human Regular (Novolin R) 0 unit SC ACHS [facility]; Protocol Last Admin: 10/28/18 21:20 Dose: 2 unit Lisinopril (Zestril) 2.5 mg PO DAILY [facility] Metformin HCl (Glucophage) 1,000 mg PO BIDCC [facility] Last Admin: 10/28/18 17:48 Dose: 1,000 mg Methylprednisolone (Solu-Medrol) 40 mg IVP Q12 [facility] Last Admin: 10/28/18 21:21 Dose: 40 mg Morphine Sulfate (Morphine) 2 mg IV Q4 PRN PRN Reason: Pain, severe (8-10) Last Admin: 10/29/18 06:38 Dose: 2 mg Pantoprazole Sodium (Protonix Ec Tab) 40 mg PO DAILY [facility] Last Admin: 10/28/18 10:27 Dose: 40 mg Rosuvastatin Calcium (Crestor) 5 mg PO HS [facility] Last Admin: 10/28/18 21:22 Dose: 5 mg Tiotropium [place] (Spiriva) 18 mcg INH RQ24 [facility] Results - Vital Signs Recent Vital Signs: Last Vital Signs Temp 98.0 F 10/29/18 00:00 Pulse 82 10/29/18 00:00 Resp 20 10/29/18 00:00 BP 148/79 10/29/18 00:00 Pulse Ox 95 10/29/18 00:00 - Labs Result Diagrams: 10/28/18 12:18 10/28/18 12:18 Labs: Laboratory Results - last 24 hr 10/28/18 10/28/18 10/28/18 11:17 12:18 12:18 WBC 14.1 H RBC 4.48 Hgb 13.9 Hct 41.3 MCV 92.2 MCH 30.9 MCHC 33.5 RDW 13.2 Plt Count 236 MPV 11.0 Neut % (Auto) 81.0 H Lymph % (Auto) 15.5 L [place] % (Auto) 3.3 Eos % (Auto) 0.0 Baso % (Auto) 0.2 Neut # (Auto) 11.4 H Lymph # (Auto) 2.2 [place] # (Auto) 0.5 Eos # (Auto) 0.0 Baso # (Auto) 0.0 Sodium 131 L Potassium 4.3 Chloride 92 L Carbon Dioxide 22 Anion Gap 21 H BUN 21 H Creatinine 0.9 Est GFR ( Amer) > 60 Est GFR (Non-Af Amer) > 60 POC Glucose (mg/dL) 466 H* Random Glucose 499 H* D Calcium 9.0 Phosphorus 2.9 Magnesium 2.0 Total Bilirubin 0.5 AST 27 ALT 26 Alkaline Phosphatase 106 Total Protein 7.5 Albumin 4.1 Globulin 3.4 Albumin/Globulin Ratio 1.2 10/28/18 10/28/18 10/29/18 16:23 21:05 06:30 WBC RBC Hgb Hct MCV MCH MCHC RDW Plt Count MPV Neut % (Auto) Lymph % (Auto) [place] % (Auto) Eos % (Auto) Baso % (Auto) Neut # (Auto) Lymph # (Auto) [place] # (Auto) Eos # (Auto) Baso # (Auto) Sodium Potassium Chloride Carbon Dioxide Anion Gap BUN Creatinine Est GFR ( Amer) Est GFR (Non-Af Amer) POC Glucose (mg/dL) 289 H 300 H 309 H Random Glucose Calcium Phosphorus Magnesium Total Bilirubin AST ALT Alkaline Phosphatase Total Protein Albumin Globulin Albumin/Globulin Ratio Attending/Attestation - Attestation I have personally seen and examined this patient.: Yes I have fully participated in the care of the patient.: Yes I have reviewed all pertinent clinical information: Yes
[2018-10-27 12:31] LABS: 23 KD (IGG) BAND Nonreactive
--- NOTE | 2018-10-27 13:24 | CP.PCM.PN ---
Subjective - Date & Time of Evaluation Date of Evaluation: 10/27/18 Time of Evaluation: 13:24 Objective - Vital Signs/Intake and Output Vital Signs (last 24 hours): Temp Pulse Resp BP Pulse Ox 97.8 F 89 20 143/81 94 L 10/27/18 07:15 10/27/18 07:15 10/27/18 07:15 10/27/18 07:15 10/27/18 07:15 Intake and Output: 10/27/18 10/27/18 06:59 18:59 Intake Total 800 Balance 800 - Medications Medications: Current Medications Albuterol/Ipratropium (Duoneb 3 Mg/0.5 Mg (3 Ml) Ud) 3 ml INH RQ6 [facility] Last Admin: 10/27/18 08:10 Dose: Not Given Aspirin (Aspirin) 325 mg PO DAILY [facility] Last Admin: 10/27/18 09:15 Dose: 325 mg Dextrose (Dextrose 50% Inj) 0 ml IV STAT PRN; Protocol PRN Reason: Hypoglycemia Protocol Dextrose (Glutose 15) 0 gm PO ONCE PRN; Protocol PRN Reason: Hypoglycemia Protocol Enoxaparin Sodium (Lovenox) 40 mg SC DAILY [facility] Last Admin: 10/27/18 09:15 Dose: 40 mg Glucagon (Glucagen Diagnostic Kit) 0 mg IM STAT PRN; Protocol PRN Reason: Hypoglycemia Protocol Sodium Chloride (Sodium Chloride 0.9%) 1,000 mls @ 100 mls/hr IV .Q10H [facility] Last Admin: 10/27/18 04:41 Dose: 100 mls/hr Dextrose (Dextrose 5% In Water 1000 Ml) 1,000 mls @ 0 mls/hr IV .Q0M PRN; Protocol PRN Reason: Hypoglycemia Protocol Insulin Aspart (Novolog) 0 unit SC ACHS [facility]; Protocol Last Admin: 10/27/18 12:00 Dose: 8 units Insulin Aspart (Novolog) 10 unit SC HS [facility] Last Admin: 10/26/18 21:24 Dose: 10 unit Insulin Aspart (Novolog) 25 unit SC AC [facility] Last Admin: 10/27/18 12:00 Dose: 25 unit Metformin HCl (Glucophage) 1,000 mg PO BIDCC [facility] Last Admin: 10/27/18 08:21 Dose: 1,000 mg Methylprednisolone (Solu-Medrol) 40 mg IVP Q8 [facility] Last Admin: 10/27/18 05:13 Dose: 40 mg Morphine Sulfate (Morphine) 2 mg IV Q4 PRN PRN Reason: Pain, severe (8-10) Last Admin: 10/27/18 09:16 Dose: 2 mg Oxycodone/Acetaminophen (Percocet 5/325 Mg Tab) 1 tab PO TID PRN PRN Reason: Pain, moderate (4-7) Stop: 10/28/18 19:24 Pantoprazole Sodium (Protonix Ec Tab) 40 mg PO DAILY [facility] Last Admin: 10/27/18 09:15 Dose: 40 mg Rosuvastatin Calcium (Crestor) 5 mg PO HS [facility] Last Admin: 10/25/18 21:43 Dose: 5 mg Tiotropium [place] (Spiriva) 18 mcg INH RQ24 [facility] - Labs Labs: 10/27/18 07:19 10/27/18 07:19 PT 13.0 SECONDS (9.7-12.2) H 10/25/18 15:39 INR 1.2 10/25/18 15:39 APTT 32 SECONDS (21-34) 10/25/18 15:39
--- NOTE | 2018-10-27 18:08 | CP.PCM.PN ---
Subjective - Date & Time of Evaluation Date of Evaluation: 10/27/18 Time of Evaluation: 09:00 - Subjective Subjective: clinically same Objective - Vital Signs/Intake and Output Vital Signs (last 24 hours): Temp Pulse Resp BP Pulse Ox 98.8 F 80 20 125/65 96 10/27/18 15:00 10/27/18 15:00 10/27/18 15:00 10/27/18 15:00 10/27/18 15:00 Intake and Output: 10/27/18 10/27/18 06:59 18:59 Intake Total 800 Balance 800 - Medications Medications: Current Medications Albuterol/Ipratropium (Duoneb 3 Mg/0.5 Mg (3 Ml) Ud) 3 ml INH RQ6 [facility] Last Admin: 10/27/18 13:25 Dose: Not Given Aspirin (Aspirin) 325 mg PO DAILY [facility] Last Admin: 10/27/18 09:15 Dose: 325 mg Dextrose (Dextrose 50% Inj) 0 ml IV STAT PRN; Protocol PRN Reason: Hypoglycemia Protocol Dextrose (Glutose 15) 0 gm PO ONCE PRN; Protocol PRN Reason: Hypoglycemia Protocol Enoxaparin Sodium (Lovenox) 40 mg SC DAILY [facility] Last Admin: 10/27/18 09:15 Dose: 40 mg Glucagon (Glucagen Diagnostic Kit) 0 mg IM STAT PRN; Protocol PRN Reason: Hypoglycemia Protocol Sodium Chloride (Sodium Chloride 0.9%) 1,000 mls @ 100 mls/hr IV .Q10H [facility] Last Admin: 10/27/18 17:51 Dose: Not Given Dextrose (Dextrose 5% In Water 1000 Ml) 1,000 mls @ 0 mls/hr IV .Q0M PRN; Protocol PRN Reason: Hypoglycemia Protocol Insulin Aspart (Novolog) 0 unit SC ACHS [facility]; Protocol Last Admin: 10/27/18 16:54 Dose: Not Given Insulin Aspart (Novolog) 6 unit SC AC [facility] Metformin HCl (Glucophage) 1,000 mg PO BIDCC [facility] Last Admin: 10/27/18 18:01 Dose: 1,000 mg Methylprednisolone (Solu-Medrol) 40 mg IVP Q8 [facility] Last Admin: 10/27/18 15:03 Dose: 40 mg Morphine Sulfate (Morphine) 2 mg IV Q4 PRN PRN Reason: Pain, severe (8-10) Last Admin: 10/27/18 15:04 Dose: 2 mg Oxycodone/Acetaminophen (Percocet 5/325 Mg Tab) 1 tab PO TID PRN PRN Reason: Pain, moderate (4-7) Stop: 10/28/18 19:24 Pantoprazole Sodium (Protonix Ec Tab) 40 mg PO DAILY [facility] Last Admin: 10/27/18 09:15 Dose: 40 mg Rosuvastatin Calcium (Crestor) 5 mg PO HS [facility] Last Admin: 10/25/18 21:43 Dose: 5 mg Tiotropium [place] (Spiriva) 18 mcg INH RQ24 [facility] - Labs Labs: 10/27/18 07:19 10/27/18 07:19 PT 13.0 SECONDS (9.7-12.2) H 10/25/18 15:39 INR 1.2 10/25/18 15:39 APTT 32 SECONDS (21-34) 10/25/18 15:39 - Constitutional Appears: Well - Head Exam Head Exam: ATRAUMATIC, NORMAL INSPECTION, NORMOCEPHALIC - Eye Exam Eye Exam: EOMI, Normal appearance, PERRL Pupil Exam: NORMAL ACCOMODATION, PERRL - ENT Exam ENT Exam: Mucous Membranes Moist, Normal Exam - Neck Exam Neck Exam: Full ROM, Normal Inspection. absent: Lymphadenopathy - Respiratory Exam Respiratory Exam: Decreased Breath Sounds - Cardiovascular Exam Cardiovascular Exam: REGULAR RHYTHM, +S1, +S2 - GI/Abdominal Exam GI & Abdominal Exam: Soft, Diminished Bowel Sounds - Rectal Exam Rectal Exam: Deferred
[2018-10-28] MEDS: Albuterol-Ipratrop 3 mg / 0.5 (3 ml) UD INH SCH ×3 (01:24→19:20)
[2018-10-28] MEDS: Sodium Chloride 0.9% 1,000 ML IV SCH ×4 (02:09→16:49)
[2018-10-28] MEDS: MethylPREDNISolone 40 mg Vial IVP SCH ×3 (05:45→21:21)
--- NOTE | 2018-10-28 06:04 | CARD ---
APPROVED REPORT Date of service: 10/27/2018 EXAM: Two-dimensional and M-mode echocardiogram with Doppler and color Doppler. Other Information Quality : GoodRhythm : INDICATION CVA/TIA 2D DIMENSIONS IVSd1.0 (0.7-1.1cm)LVDd4.3 (3.9-5.9cm) PWd1.0 (0.7-1.1cm)LA [id number] (18-58mL) LVDs2.4 (2.5-4.0cm)FS (%) 44.1 % LVEF (%)75.6 (>50%)LVEF (Lomeli's)68.26 % M-Mode DIMENSIONS Left Atrium (MM)3.79 (2.5-4.0cm)IVSd0.75 (0.7-1.1cm) Aortic Root3.02 (2.2-3.7cm)LVDd4.84 (4.0-5.6cm) Aortic Cusp Exc.2.23 (1.5-2.0cm)PWd0.83 (0.7-1.1cm) FS (%) 44 %LVDs2.71 (2.0-3.8cm) LVEF (%)75 (>50%) Aortic Valve AoV Peak Fhygrmpo582.6cm/Agusto Peak GR.7mmHg Mitral Valve MV E Lhufydzs42.3cm/sMV A Jmcwuxei76.8cm/sE/A ratio0.7 TDI Lateral E' Peak V7.00cm/sMedial E' Peak V7.06cm/sE/Lateral E'8.3 E/Medial E'8.3 LEFT VENTRICLE The left ventricle is normal size. There is normal left ventricular wall thickness. Left ventricle systolic function is normal. The Ejection Fraction is >70%. There is normal LV segmental wall motion. Tissue Doppler imaging reveals abnormal left ventricular diastolic dysfunction. RIGHT VENTRICLE The right ventricle is normal size. There is normal right ventricular wall thickness. The right ventricular systolic function is normal. ATRIA The left atrium size is normal. The right atrium size is normal. The interatrial septum is intact with no evidence for an atrial septal defect. AORTIC VALVE The aortic valve is normal in structure. No aortic regurgitation is present. There is no aortic valvular stenosis. MITRAL VALVE The mitral valve is normal in structure. There is no evidence of mitral valve prolapse. There is no mitral valve stenosis. There is no mitral valve regurgitation noted. TRICUSPID VALVE The tricuspid valve is normal in structure. There is no tricuspid valve regurgitation noted. There is no tricuspid valve prolapse or vegetation. There is no tricuspid valve stenosis. PULMONIC VALVE The pulmonic valve is not well visualized. There is mild to moderate pulmonic valvular regurgitation. GREAT VESSELS The aortic root is normal in size. PERICARDIAL EFFUSION There is no significant pericardial effusion. <Conclusion> Left ventricle systolic function is normal. The Ejection Fraction is >70%. Diastolic dysfunction. No aortic regurgitation is present. There is no mitral valve regurgitation noted. There is no tricuspid valve regurgitation noted. There is mild to moderate pulmonic valvular regurgitation.
[2018-10-28] MEDS ORDERED: Gadodiamide 287 mg/ml 20 ml IV ONE (09:52)
[2018-10-28] MEDS: Enoxaparin 40 mg Syringe SC SCH (10:27)
[2018-10-28] MEDS: Pantoprazole 40 mg EC Tab PO SCH (10:27)
[2018-10-28] MEDS: (Novolog) Insulin Aspart, Recombinant 100 u/ml 10 ml vial SC SCH ×5 (10:28→17:49)
[2018-10-28 12:31] LABS: BASO % 0.2 % (0.0-2.0); HEMOGLOBIN 13.9 g/dL (11.0-16.0); LYMPH # 2.2 K/uL (1.0-4.3); LYMPH % 15.5 % (20.0-40.0); MEAN CELL VOLUME 92.2 fL (81.0-99.0); MEAN CORPUSCULAR HEMOGLOBIN 30.9 pg (27.0-31.0); MEAN CORPUSCULAR HGB CONC 33.5 g/dL (33.0-37.0); MONO # 0.5 K/uL (0.0-0.8); MONO % 3.3 % (0.0-10.0); NEUT # 11.4 K/uL (1.8-7.0); RBC 4.48 Mil/uL (3.80-5.20); RED CELL DISTRIBUTION WIDTH 13.2 % (11.5-14.5); WHITE BLOOD COUNT 14.1 K/uL (4.8-10.8)
[2018-10-28 13:32] LABS: ALB/GLOB RATIO 1.2 (1.0-2.1); ALBUMIN 4.1 g/dL (3.5-5.0); ALT/SGPT 26 U/L (9-52); AST/SGOT 27 U/L (14-36); BLOOD UREA NITROGEN 21 mg/dL (7-17); GFR NON-AFRICAN AMERICAN > 60
--- NOTE | 2018-10-28 13:49 | CP.PCM.PN ---
Subjective - Date & Time of Evaluation Date of Evaluation: 10/28/18 Time of Evaluation: 13:49 - Subjective Subjective: Patient seen and examined No events overnight Objective - Vital Signs/Intake and Output Vital Signs (last 24 hours): Temp Pulse Resp BP Pulse Ox 98.2 F 86 18 117/78 98 10/28/18 07:57 10/28/18 10:26 10/28/18 10:26 10/28/18 10:26 10/28/18 10:26 - Medications Medications: Current Medications Albuterol/Ipratropium (Duoneb 3 Mg/0.5 Mg (3 Ml) Ud) 3 ml INH RQ6 [facility] Last Admin: 10/28/18 01:24 Dose: Not Given Aspirin (Aspirin) 325 mg PO DAILY [facility] Last Admin: 10/28/18 10:27 Dose: 325 mg Dextrose (Dextrose 50% Inj) 0 ml IV STAT PRN; Protocol PRN Reason: Hypoglycemia Protocol Dextrose (Glutose 15) 0 gm PO ONCE PRN; Protocol PRN Reason: Hypoglycemia Protocol Enoxaparin Sodium (Lovenox) 40 mg SC DAILY [facility] Last Admin: 10/28/18 10:27 Dose: 40 mg Glucagon (Glucagen Diagnostic Kit) 0 mg IM STAT PRN; Protocol PRN Reason: Hypoglycemia Protocol Sodium Chloride (Sodium Chloride 0.9%) 1,000 mls @ 100 mls/hr IV .Q10H [facility] Last Admin: 10/28/18 13:36 Dose: 100 mls/hr Dextrose (Dextrose 5% In Water 1000 Ml) 1,000 mls @ 0 mls/hr IV .Q0M PRN; Protocol PRN Reason: Hypoglycemia Protocol Insulin Aspart (Novolog) 0 unit SC ACHS [facility]; Protocol Last Admin: 10/28/18 11:59 Dose: 10 units Insulin Aspart (Novolog) 6 unit SC AC [facility] Last Admin: 10/28/18 11:58 Dose: 6 unit Metformin HCl (Glucophage) 1,000 mg PO BIDCC [facility] Last Admin: 10/28/18 10:27 Dose: 1,000 mg Methylprednisolone (Solu-Medrol) 40 mg IVP Q8 [facility] Last Admin: 10/28/18 13:32 Dose: 40 mg Morphine Sulfate (Morphine) 2 mg IV Q4 PRN PRN Reason: Pain, severe (8-10) Last Admin: 10/28/18 10:33 Dose: 2 mg Oxycodone/Acetaminophen (Percocet 5/325 Mg Tab) 1 tab PO TID PRN PRN Reason: Pain, moderate (4-7) Stop: 10/28/18 19:24 Last Admin: 10/28/18 02:13 Dose: 1 tab Pantoprazole Sodium (Protonix Ec Tab) 40 mg PO DAILY [facility] Last Admin: 10/28/18 10:27 Dose: 40 mg Rosuvastatin Calcium (Crestor) 5 mg PO HS [facility] Last Admin: 10/27/18 21:26 Dose: 5 mg Tiotropium [place] (Spiriva) 18 mcg INH RQ24 [facility] - Labs Labs: 10/28/18 12:18 10/28/18 12:18 PT 13.0 SECONDS (9.7-12.2) H 10/25/18 15:39 INR 1.2 10/25/18 15:39 APTT 32 SECONDS (21-34) 10/25/18 15:39 - Head Exam Head Exam: NORMAL INSPECTION - Eye Exam Eye Exam: Normal appearance - ENT Exam ENT Exam: Mucous Membranes Moist - Respiratory Exam Respiratory Exam: Clear to Ausculation Bilateral - Cardiovascular Exam Cardiovascular Exam: REGULAR RHYTHM, +S1, +S2 - GI/Abdominal Exam GI & Abdominal Exam: Soft, Normal Bowel Sounds - Extremities Exam Extremities Exam: Normal Inspection Assessment and Plan (1) Asthma Status: Acute (2) Dyspnea Status: Acute (3) CN III palsy, right eye Status: Acute (4) CN palsy, right eye Status: Acute - Assessment and Plan (Free Text) Plan: Asthma is at baseline Bronchodilators Neuro follow-up Continue supportive care DVT/GI prophylaxis
--- NOTE | 2018-10-28 15:12 | CP.PCM.PN ---
<Imani Vu - Last Filed: 10/28/18 16:50> Subjective - Date & Time of Evaluation Date of Evaluation: 10/28/18 Time of Evaluation: 08:00 - Subjective Subjective: Medicine Progress Note for Dr. Bear Bello's Service: Patient was seen and examined at bedside. Patient states she continues to have a headache that has been constant since her admission 10/25/18. She states the headache is located only on the right side and along the right side of her face. She states the only way she can open her right eye is by lifting the lid itself. When she does lift her eyelid she then sees double vision with the right eye. She states this all started to occur after she received her flu shot on 10/02/2018. Patient also states she has not had a bowel movement since 10/28 and has not been passing flatus. Patient denies chest pain, shortness of breath, abdominal pain, fever, chills, nausea, vomiting or dysuria. Objective - Vital Signs/Intake and Output Vital Signs (last 24 hours): Temp Pulse Resp BP Pulse Ox 98.2 F 86 18 117/78 98 10/28/18 07:57 10/28/18 10:26 10/28/18 10:26 10/28/18 10:26 10/28/18 10:26 - Medications Medications: Current Medications Albuterol/Ipratropium (Duoneb 3 Mg/0.5 Mg (3 Ml) Ud) 3 ml INH RQ6 [facility] Last Admin: 10/28/18 01:24 Dose: Not Given Aspirin (Aspirin) 325 mg PO DAILY [facility] Last Admin: 10/28/18 10:27 Dose: 325 mg Dextrose (Dextrose 50% Inj) 0 ml IV STAT PRN; Protocol PRN Reason: Hypoglycemia Protocol Dextrose (Glutose 15) 0 gm PO ONCE PRN; Protocol PRN Reason: Hypoglycemia Protocol Enoxaparin Sodium (Lovenox) 40 mg SC DAILY [facility] Last Admin: 10/28/18 10:27 Dose: 40 mg Glucagon (Glucagen Diagnostic Kit) 0 mg IM STAT PRN; Protocol PRN Reason: Hypoglycemia Protocol Dextrose (Dextrose 5% In Water 1000 Ml) 1,000 mls @ 0 mls/hr IV .Q0M PRN; Protocol PRN Reason: Hypoglycemia Protocol Sodium Chloride (Sodium Chloride 0.9%) 1,000 mls @ 70 mls/hr IV .[id number] [facility] Insulin Aspart (Novolog) 10 unit SC AC [facility] Insulin Glargine (Lantus) 10 unit SC HS [facility] Insulin Human Regular (Novolin R) 0 unit SC ACHS [facility]; Protocol Metformin HCl (Glucophage) 1,000 mg PO BIDCC [facility] Last Admin: 10/28/18 10:27 Dose: 1,000 mg Methylprednisolone (Solu-Medrol) 40 mg IVP Q8 [facility] Last Admin: 10/28/18 13:32 Dose: 40 mg Morphine Sulfate (Morphine) 2 mg IV Q4 PRN PRN Reason: Pain, severe (8-10) Last Admin: 10/28/18 14:50 Dose: 2 mg Oxycodone/Acetaminophen (Percocet 5/325 Mg Tab) 1 tab PO TID PRN PRN Reason: Pain, moderate (4-7) Stop: 10/28/18 19:24 Last Admin: 10/28/18 02:13 Dose: 1 tab Pantoprazole Sodium (Protonix Ec Tab) 40 mg PO DAILY [facility] Last Admin: 10/28/18 10:27 Dose: 40 mg Rosuvastatin Calcium (Crestor) 5 mg PO HS [facility] Last Admin: 10/27/18 21:26 Dose: 5 mg Tiotropium [place] (Spiriva) 18 mcg INH RQ24 [facility] - Labs Labs: 10/28/18 12:18 10/28/18 12:18 PT 13.0 SECONDS (9.7-12.2) H 10/25/18 15:39 INR 1.2 10/25/18 15:39 APTT 32 SECONDS (21-34) 10/25/18 15:39 - Constitutional Appears: No Acute Distress - Head Exam Head Exam: ATRAUMATIC, NORMAL INSPECTION - Eye Exam Eye Exam: Periorbital swelling (right eye) Additional comments: severe ptosis of right eye - ENT Exam ENT Exam: Mucous Membranes Moist - Respiratory Exam Respiratory Exam: Clear to Ausculation Bilateral, NORMAL BREATHING PATTERN - Cardiovascular Exam Cardiovascular Exam: REGULAR RHYTHM, +S1, +S2 - GI/Abdominal Exam GI & Abdominal Exam: Soft, Normal Bowel Sounds. absent: Distended, Firm, Guarding, Tenderness - Extremities Exam Extremities Exam: Normal Inspection - Neurological Exam Neurological Exam: Alert, Awake, Oriented x3 - Psychiatric Exam Psychiatric exam: Normal Affect - Skin Skin Exam: Normal Color Assessment and Plan - Assessment and Plan (Free Text) Assessment: CN III/XI Palsy - Neurology Consult: Dr. Tejeda --> help appreciated - Cardiology Consult: Dr. Macdonald --> help appreciated * TTE completed, official read pending but interpreted by Dr. Macdonald to have normal EF and no suspicious valvular lesions * No additional inpatient cardiac w/u warranted at this time - Lyme: Negative; Thyroperoxidase AB negative - ESR (10/26/18): 35 - Images: * Head CT: Unremarkable noncontrast CT of the Head. No signal interval change from prior CT without contrast 07/31/2017. * Brain MRI: No acute intracranial abnormality. Multifocal white matter changes in the left richardson radiata and small foci of bifrontal and parietal subcortical white matter changes are strictly nonspecific, the differential considerations include migraine headache effect, gliosis, early chronic microangiopathic changes, Lyme disease, vasculitis and demyelinating disease including multiple sclerosis. Clinical correlation and follow-up is advised. * Head MRA: No evidence of occlusion nor significant stenosis of the major the distal internal carotid arteries of, [id number] or proximal margins of the major branch vessels. Note that the distal branch vessels are not well delineated on this exam though are relatively symmetric. If vasculitis is suspected clinically, traditional/catheter four-vessel cerebral angiography may be ultimately required. Suspect small infundibulum arising from the superior margin right A1 segment and possibly the inferior margin of the right M1 segment.. Follow-up CTA could be performed for further evaluation * f/u neck MRA * f/u orbits/face/neck MRI - Medications: * Aspirin 81mg daily * Solumedrol 40mg IV q12h * Morphine 2mg IV q4prn * Percocet 1 tab tid prn Hyponatremia - Na: 131 - NS @ 70cc/hr - Continue to monitor Leukocytosis - secondary to solumedrol - continue to monitor Constipation - f/u Flat plate History of Diabetes - Accuchecks - Hypoglycemia Protocol - hA1c (10/26/18): 8.6 - Medications: * Metformin 1000mg bid * ISS - high * Novolog 10units SC AC * Lantus 10 units SC HS * Lisinopril 2.5mg daily History of HLD - Lipid Panel: Total Cholesterol 163; LDL 99; HDL 36; Triglycerides 190 - Crestor 5mg HS History of Hepatic Steatosis - AST/ALT - Continue to monitor History of Asthma - Pulm Consult: Dr. Paige --> help appreciated - Chest Xray (10/25/18): No focal consolidation. The interstitial markings are slightly increased and coarsened; rule out sequela of reactive/inflammatory airway disease or viral illness.. There is a small elliptical shaped nodular den sity left lateral upper lobe located between the anterior 2nd and 3rd ribs that may represent vessel on end artifact. Possibility of a small parenchymal nodule not completely excluded. Repeat radiographs in 2 months could be performed to assess stability - Medications: * Spiriva * Duoneb prn History of GERD - Protonix 40mg po dialy Prophylaxis - Lovenox 40mg SC daily - Protonix 40mg daily - SCDs Medical management per Dr. Bear Bello <Carlos Enrique Bello - Last Filed: 10/28/18 20:00> Objective - Vital Signs/Intake and Output Vital Signs (last 24 hours): Temp Pulse Resp BP Pulse Ox 98.3 F 81 20 146/76 95 10/28/18 16:49 10/28/18 16:49 10/28/18 16:49 10/28/18 16:49 10/28/18 16:49 - Medications Medications: Current Medications Albuterol/Ipratropium (Duoneb 3 Mg/0.5 Mg (3 Ml) Ud) 3 ml INH RQ6 PRN PRN Reason: Shortness of Breath Aspirin (Ecotrin) 81 mg PO DAILY [facility] Dextrose (Dextrose 50% Inj) 0 ml IV STAT PRN; Protocol PRN Reason: Hypoglycemia Protocol Dextrose (Glutose 15) 0 gm PO ONCE PRN; Protocol PRN Reason: Hypoglycemia Protocol Enoxaparin Sodium (Lovenox) 40 mg SC DAILY [facility] Last Admin: 10/28/18 10:27 Dose: 40 mg Glucagon (Glucagen Diagnostic Kit) 0 mg IM STAT PRN; Protocol PRN Reason: Hypoglycemia Protocol Dextrose (Dextrose 5% In Water 1000 Ml) 1,000 mls @ 0 mls/hr IV .Q0M PRN; Protocol PRN Reason: Hypoglycemia Protocol Sodium Chloride (Sodium Chloride 0.9%) 1,000 mls @ 70 mls/hr IV .[id number] [facility] Last Admin: 10/28/18 16:49 Dose: Not Given Insulin Aspart (Novolog) 10 unit SC AC [facility] Last Admin: 10/28/18 17:49 Dose: 10 unit Insulin Glargine (Lantus) 10 unit SC HS [facility] Insulin Human Regular (Novolin R) 0 unit SC ACHS [facility]; Protocol Last Admin: 10/28/18 17:48 Dose: 6 unit Lisinopril (Zestril) 2.5 mg PO DAILY [facility] Metformin HCl (Glucophage) 1,000 mg PO BIDCC [facility] Last Admin: 10/28/18 17:48 Dose: 1,000 mg Methylprednisolone (Solu-Medrol) 40 mg IVP Q12 [facility] Morphine Sulfate (Morphine) 2 mg IV Q4 PRN PRN Reason: Pain, severe (8-10) Last Admin: 10/28/18 14:50 Dose: 2 mg Pantoprazole Sodium (Protonix Ec Tab) 40 mg PO DAILY [facility] Last Admin: 10/28/18 10:27 Dose: 40 mg Rosuvastatin Calcium (Crestor) 5 mg PO HS [facility] Last Admin: 10/27/18 21:26 Dose: 5 mg Tiotropium [place] (Spiriva) 18 mcg INH RQ24 [facility] - Labs Labs: 10/28/18 12:18 10/28/18 12:18 PT 13.0 SECONDS (9.7-12.2) H 10/25/18 15:39 INR 1.2 10/25/18 15:39 APTT 32 SECONDS (21-34) 10/25/18 15:39 Attending/Attestation - Attestation I have personally seen and examined this patient.: Yes I have fully participated in the care of the patient.: Yes I have reviewed all pertinent clinical information, including history, physical exam and plan: Yes Notes (Text): 10/28/18 19:59 Agree IV steroid Cardiology follow-up Pulmonary follow-up Neurology follow-up As ordered
[2018-10-28] MEDS ORDERED: Albuterol-Ipratrop 3 mg / 0.5 (3 ml) UD INH PRN (15:22)
--- NOTE | 2018-10-28 16:39 | MRI ---
Date of service: 10/28/2018 PROCEDURE: MR Angiography of the neck without contrast HISTORY: VASCULOPATHY COMPARISON: None available. TECHNIQUE: 2D and 3D [id number] angiography of the neck was performed. Rotating maximum intensity projection images of the cervical carotid and vertebral arteries were generated. The origins of the common carotid arteries were not visualized, which is a limitation inherent to the non-contrast time of flight technique. FINDINGS: RIGHT CAROTID ARTERIES: Common Carotid Artery: Normal. Carotid Bifurcation: Normal. Internal Carotid Artery:Normal. External Carotid Artery (proximal branches): Normal. LEFT CAROTID ARTERIES: Common Carotid Artery: Normal. Carotid Bifurcation: Normal. Internal Carotid Artery:Normal. External Carotid Artery (proximal branches): Normal. VERTEBRAL ARTERIES: Right Vertebral Artery: Normal. Left Vertebral Artery: Normal. OTHER FINDINGS: None. IMPRESSION: Normal MR Angiography of the neck.
--- NOTE | 2018-10-28 16:50 | MRI ---
Date of service: 10/28/2018 PROCEDURE: MRI ORBITS WITH AND WITHOUT CONTRAST HISTORY: Orbital mass vs myopathy COMPARISON: Correlation made with prior MRI brain 10/26/2018 TECHNIQUE: Multiplanar multisequence MR images of the orbits with T1 fat-suppressed technique were obtained with and without gadolinium enhancement. Approximately 18 cc Omniscan injected for this exam FINDINGS: The orbits and contents appear unremarkable. Globes intact and lenses appropriately located. There are no enhancing retrobulbar masses or collections. The visualized optic nerves and extraocular musculature are unremarkable. Optic chiasm is normal. There are no enhancing parenchymal nor extra-axial masses or collections seen within the intracranial compartment. Mild age-appropriate volume loss. Previously focal area of increased T2 signal seen in the left richardson radiata seen on FLAIR sequence prior exam less well delineated on this study as this examination was dedicated to evaluate orbits. OTHER FINDINGS: None. IMPRESSION: Unremarkable pre and post contrast enhanced MRI of the orbits. No enhancing lesions are identified. Previously noted gliotic changes Nonspecific gliotic changes in the left richardson radiata poorly delineated on this study.
--- NOTE | 2018-10-28 17:29 | CP.PCM.PN ---
Subjective - Date & Time of Evaluation Date of Evaluation: 10/28/18 Time of Evaluation: 08:30 - Subjective Subjective: Clinically same Objective - Vital Signs/Intake and Output Vital Signs (last 24 hours): Temp Pulse Resp BP Pulse Ox 98.3 F 81 20 146/76 95 10/28/18 16:49 10/28/18 16:49 10/28/18 16:49 10/28/18 16:49 10/28/18 16:49 - Medications Medications: Current Medications Albuterol/Ipratropium (Duoneb 3 Mg/0.5 Mg (3 Ml) Ud) 3 ml INH RQ6 PRN PRN Reason: Shortness of Breath Aspirin (Ecotrin) 81 mg PO DAILY [facility] Dextrose (Dextrose 50% Inj) 0 ml IV STAT PRN; Protocol PRN Reason: Hypoglycemia Protocol Dextrose (Glutose 15) 0 gm PO ONCE PRN; Protocol PRN Reason: Hypoglycemia Protocol Enoxaparin Sodium (Lovenox) 40 mg SC DAILY [facility] Last Admin: 10/28/18 10:27 Dose: 40 mg Glucagon (Glucagen Diagnostic Kit) 0 mg IM STAT PRN; Protocol PRN Reason: Hypoglycemia Protocol Dextrose (Dextrose 5% In Water 1000 Ml) 1,000 mls @ 0 mls/hr IV .Q0M PRN; Protocol PRN Reason: Hypoglycemia Protocol Sodium Chloride (Sodium Chloride 0.9%) 1,000 mls @ 70 mls/hr IV .[id number] [facility] Last Admin: 10/28/18 16:49 Dose: Not Given Insulin Aspart (Novolog) 10 unit SC AC [facility] Insulin Glargine (Lantus) 10 unit SC HS [facility] Insulin Human Regular (Novolin R) 0 unit SC ACHS [facility]; Protocol Lisinopril (Zestril) 2.5 mg PO DAILY [facility] Metformin HCl (Glucophage) 1,000 mg PO BIDCC [facility] Last Admin: 10/28/18 10:27 Dose: 1,000 mg Methylprednisolone (Solu-Medrol) 40 mg IVP Q12 [facility] Morphine Sulfate (Morphine) 2 mg IV Q4 PRN PRN Reason: Pain, severe (8-10) Last Admin: 10/28/18 14:50 Dose: 2 mg Oxycodone/Acetaminophen (Percocet 5/325 Mg Tab) 1 tab PO TID PRN PRN Reason: Pain, moderate (4-7) Stop: 10/28/18 19:24 Last Admin: 10/28/18 02:13 Dose: 1 tab Pantoprazole Sodium (Protonix Ec Tab) 40 mg PO DAILY [facility] Last Admin: 10/28/18 10:27 Dose: 40 mg Rosuvastatin Calcium (Crestor) 5 mg PO HS [facility] Last Admin: 10/27/18 21:26 Dose: 5 mg Tiotropium [place] (Spiriva) 18 mcg INH RQ24 [facility] - Labs Labs: 10/28/18 12:18 10/28/18 12:18 PT 13.0 SECONDS (9.7-12.2) H 10/25/18 15:39 INR 1.2 10/25/18 15:39 APTT 32 SECONDS (21-34) 10/25/18 15:39 - Constitutional Appears: Well - Head Exam Head Exam: ATRAUMATIC, NORMAL INSPECTION, NORMOCEPHALIC - Eye Exam Eye Exam: EOMI, Normal appearance, PERRL Pupil Exam: NORMAL ACCOMODATION, PERRL - ENT Exam ENT Exam: Mucous Membranes Moist, Normal Exam - Neck Exam Neck Exam: Full ROM, Normal Inspection. absent: Lymphadenopathy - Respiratory Exam Respiratory Exam: Decreased Breath Sounds - Cardiovascular Exam Cardiovascular Exam: REGULAR RHYTHM, +S1, +S2 - GI/Abdominal Exam GI & Abdominal Exam: Soft, Diminished Bowel Sounds - Rectal Exam Rectal Exam: Deferred Assessment and Plan (1) CN III palsy, right eye Status: Acute (2) CN palsy, right eye Status: Acute (3) Headache Status: Acute (4) Abdominal pain Status: Acute (5) Blurry vision Status: Acute (6) Constipation Status: Acute (7) Foot ulcer Status: Acute (8) Diplopia Status: Chronic - Assessment and Plan (Free Text) Plan: CN III/XI Palsy - Neurology Consult: Dr. Tejeda --> help appreciated - Cardiology Consult: Dr. Macdonald --> help appreciated TTE completed, official read pending but interpreted by Dr. Macdonald to have normal EF and no suspicious valvular lesions No additional inpatient cardiac w/u warranted at this time - Lyme: Negative; Thyroperoxidase AB negative - ESR (10/26/18): 35 - Images: Head CT: Unremarkable noncontrast CT of the Head. No signal interval change from prior CT without contrast 07/31/2017. Brain MRI: No acute intracranial abnormality. Multifocal white matter changes in the left richardson radiata and small foci of bifrontal and parietal subcortical white matter changes are strictly nonspecific, the differential considerations include migraine headache effect, gliosis, early chronic microangiopathic changes, Lyme disease, vasculitis and demyelinating disease including multiple sclerosis. Clinical correlation and follow-up is advised. Head MRA: No evidence of occlusion nor significant stenosis of the major the distal internal carotid arteries of, [id number] or proximal margins of the major branch vessels. Note that the distal branch vessels are not well delineated on this exam though are relatively symmetric. If vasculitis is suspected clinically, traditional/catheter four-vessel cerebral angiography may be ultimately required. Suspect small infundibulum arising from the superior margin right A1 segment and possibly the inferior margin of the right M1 segme nt.. Follow-up CTA could be performed for further evaluation f/u neck MRA f/u orbits/face/neck MRI - Medications: Aspirin 81mg daily Solumedrol 40mg IV q12h Morphine 2mg IV q4prn Percocet 1 tab tid prn Hyponatremia - Na: 131 - NS @ 70cc/hr - Continue to monitor Leukocytosis - secondary to solumedrol - continue to monitor Constipation - f/u Flat plate History of Diabetes - Accuchecks - Hypoglycemia Protocol - hA1c (10/26/18): 8.6 - Medications: Metformin 1000mg bid ISS - high Novolog 10units SC AC Lantus 10 units SC HS Lisinopril 2.5mg daily History of HLD - Lipid Panel: Total Cholesterol 163; LDL 99; HDL 36; Triglycerides 190 - Crestor 5mg HS History of Hepatic Steatosis - AST/ALT - Continue to monitor History of Asthma - Pulm Consult: Dr. Paige --> help appreciated - Chest Xray (10/25/18): No focal consolidation. The interstitial markings are slightly increased and coarsened; rule out sequela of reactive/inflammatory airway disease or viral illness.. There is a small elliptical shaped nodular density left lateral upper lobe located between the anterior 2nd and 3rd ribs that may represent vessel on end artifact. Possibility of a small parenchymal nodule not completely excluded. Repeat radiographs in 2 months could be performed to assess stability - Medications: Spiriva Duoneb prn History of GERD - Protonix 40mg po dialy Prophylaxis - Lovenox 40mg SC daily - Protonix 40mg daily - SCDs
[2018-10-28] MEDS: (Novolin R) Insulin Human Regular 100 units/ml vial SC SCH ×2 (17:48→21:20)
[2018-10-28] MEDS: (Lantus) Insulin Glargine, Recombinant SC SCH (21:22)
[2018-10-29] MEDS: (Novolog) Insulin Aspart, Recombinant 100 u/ml 10 ml vial SC SCH ×3 (08:23→17:39)
[2018-10-29] MEDS: (Novolin R) Insulin Human Regular 100 units/ml vial SC SCH ×4 (08:24→21:40)
--- NOTE | 2018-10-29 09:14 | CP.PCM.PN ---
Subjective - Date & Time of Evaluation Date of Evaluation: 10/29/18 Time of Evaluation: 09:15 - Subjective Subjective: Resident Progress Note for Dr. Bello Patient seen and examined at the bedside. No acute events reported overnight. Patient complains of having headache overnight but it is managed well with pain medication. Today she is able to open her right eye barely without assistance of her hands. She still complains of double vision with the right eye. She also complains of constipation. Patient denies fever, chills, chest pain, shortness of breath, abdominal pain, nausea, vomiting or dysuria. Objective - Vital Signs/Intake and Output Vital Signs (last 24 hours): Temp Pulse Resp BP Pulse Ox 98 F 83 18 113/72 95 10/29/18 08:11 10/29/18 08:11 10/29/18 08:11 10/29/18 08:11 10/29/18 08:11 Intake and Output: 10/29/18 10/29/18 06:59 18:59 Intake Total 1260 Balance 1260 - Medications Medications: Current Medications Albuterol/Ipratropium (Duoneb 3 Mg/0.5 Mg (3 Ml) Ud) 3 ml INH RQ6 PRN PRN Reason: Shortness of Breath Aspirin (Ecotrin) 81 mg PO DAILY [facility] Dextrose (Dextrose 50% Inj) 0 ml IV STAT PRN; Protocol PRN Reason: Hypoglycemia Protocol Dextrose (Glutose 15) 0 gm PO ONCE PRN; Protocol PRN Reason: Hypoglycemia Protocol Enoxaparin Sodium (Lovenox) 40 mg SC DAILY [facility] Last Admin: 10/28/18 10:27 Dose: 40 mg Glucagon (Glucagen Diagnostic Kit) 0 mg IM STAT PRN; Protocol PRN Reason: Hypoglycemia Protocol Dextrose (Dextrose 5% In Water 1000 Ml) 1,000 mls @ 0 mls/hr IV .Q0M PRN; Protocol PRN Reason: Hypoglycemia Protocol Sodium Chloride (Sodium Chloride 0.9%) 1,000 mls @ 70 mls/hr IV .[id number] [facility] Last Admin: 10/28/18 16:49 Dose: Not Given Insulin Aspart (Novolog) 10 unit SC AC [facility] Last Admin: 10/29/18 08:23 Dose: 10 unit Insulin Glargine (Lantus) 10 unit SC HS [facility] Last Admin: 10/28/18 21:22 Dose: 10 unit Insulin Human Regular (Novolin R) 0 unit SC ACHS [facility]; Protocol Last Admin: 10/29/18 08:24 Dose: 8 unit Lisinopril (Zestril) 2.5 mg PO DAILY [facility] Metformin HCl (Glucophage) 1,000 mg PO BIDCC [facility] Last Admin: 10/29/18 08:26 Dose: 1,000 mg Methylprednisolone (Solu-Medrol) 40 mg IVP Q12 [facility] Last Admin: 10/28/18 21:21 Dose: 40 mg Morphine Sulfate (Morphine) 2 mg IV Q4 PRN PRN Reason: Pain, severe (8-10) Last Admin: 10/29/18 06:38 Dose: 2 mg Pantoprazole Sodium (Protonix Ec Tab) 40 mg PO DAILY [facility] Last Admin: 10/28/18 10:27 Dose: 40 mg Rosuvastatin Calcium (Crestor) 5 mg PO HS [facility] Last Admin: 10/28/18 21:22 Dose: 5 mg Tiotropium [place] (Spiriva) 18 mcg INH RQ24 [facility] - Labs Labs: 10/28/18 12:18 10/28/18 12:18 PT 13.0 SECONDS (9.7-12.2) H 10/25/18 15:39 INR 1.2 10/25/18 15:39 APTT 32 SECONDS (21-34) 10/25/18 15:39 - Additional Findings Additional findings: - Constitutional Appears: No Acute Distress - Head Exam Head Exam: ATRAUMATIC, NORMAL INSPECTION - Eye Exam Eye Exam: Periorbital swelling (right eye) Additional comments: severe ptosis of right eye, open slightly without assistance today - ENT Exam ENT Exam: Mucous Membranes Moist - Respiratory Exam Respiratory Exam: Clear to Ausculation Bilateral, NORMAL BREATHING PATTERN - Cardiovascular Exam Cardiovascular Exam: REGULAR RHYTHM, +S1, +S2 - GI/Abdominal Exam GI & Abdominal Exam: Soft, Normal Bowel Sounds. absent: Distended, Firm, Guarding, Tenderness - Extremities Exam Extremities Exam: Normal Inspection - Neurological Exam Neurological Exam: Alert, Awake, Oriented x3 - Psychiatric Exam Psychiatric exam: Normal Affect - Skin Skin Exam: Normal Color Assessment and Plan - Assessment and Plan (Free Text) Assessment: CN III/XI Palsy, Improving - Patient will be discharged on 10/29/18 with medrol dose pack - Follow up instructions with neurology explained to the patient in detail - Right eye lid palsy improved slightly today (open and see slightly without assistance) - Neurology Consult: Dr. Tejeda --> help appreciated - Cardiology Consult: Dr. Macdonald --> help appreciated * TTE completed, official read pending but interpreted by Dr. Macdonald to have normal EF and no suspicious valvular lesions * No additional inpatient cardiac w/u warranted at this time - Lyme: Negative; Thyroperoxidase AB negative - ESR (10/26/18): 35 - Images: * Head CT: Unremarkable noncontrast CT of the Head. No signal interval change from prior CT without contrast 07/31/2017. * Brain MRI: No acute intracranial abnormality. Multifocal white matter changes in the left richardson radiata and small foci of bifrontal and parietal subcortical white matter changes are strictly nonspecific, the differential considerations include migraine headache effect, gliosis, early chronic microangiopathic changes, Lyme disease, vasculitis and demyelinating disease including multiple sclerosis. Clinical correlation and follow-up is advised. * Head MRA: No evidence of occlusion nor significant stenosis of the major the distal internal carotid arteries of, [id number] or proximal margins of the major branch vessels. Note that the distal branch vessels are not well delineated on this exam though are relatively symmetric. If vasculitis is suspected clinically, traditional/catheter four-vessel cerebral angiography may be ultimately required. Suspect small infundibulum arising from the superior margin right A1 segment and possibly the inferior margin of the right M1 segment.. Follow-up CTA could be performed for further evaluation * Neck MRA: Normal MR Angiography of the neck. * Orbits/face/neck MRI: Unremarkable pre and post contrast enhanced MRI of the orbits. No enhancing lesions are identified. Previously noted gliotic changes. Nonspecific gliotic changes in the left richardson radiata poorly delineated on this study. - Medications: * Aspirin 81mg daily * Solumedrol 40mg IV q12h * Morphine 2mg IV q4prn * Percocet 1 tab tid prn Hyponatremia - Na: 131 - NS @ 70cc/hr - Continue to monitor Leukocytosis - secondary to solumedrol - continue to monitor Constipation - f/u Flat plate History of Diabetes - Accuchecks - Hypoglycemia Protocol - hA1c (10/26/18): 8.6 - Medications: * Metformin 1000mg bid * ISS - high * Novolog 10units SC AC * Lantus 10 units SC HS * Lisinopril 2.5mg daily History of HLD - Lipid Panel: Total Cholesterol 163; LDL 99; HDL 36; Triglycerides 190 - Crestor 5mg HS History of Hepatic Steatosis - AST/ALT - Continue to monitor History of Asthma - Pulm Consult: Dr. Paige --> help appreciated - Chest Xray (10/25/18): No focal consolidation. The interstitial markings are slightly increased and coarsened; rule out sequela of reactive/inflammatory airway disease or viral illness.. There is a small elliptical shaped nodular density left lateral upper lobe located between the anterior 2nd and 3rd ribs that may represent vessel on end artifact. Possibility of a small parenchymal nodule not completely excluded. Repeat radiographs in 2 months could be performed to assess stability - Medications: * Spiriva * Duoneb prn History of GERD - Protonix 40mg po dialy Prophylaxis - Lovenox 40mg SC daily - Protonix 40mg daily - SCDs Dispo: Patient will be discharged on 10/29/18 with medrol dose pack (script in chart). Follow up instructions with neurology explained to the patient in detail Medical management per Dr. Bear Bello
[2018-10-29] MEDS: Enoxaparin 40 mg Syringe SC SCH (09:34)
[2018-10-29] MEDS: Pantoprazole 40 mg EC Tab PO SCH (09:34)
[2018-10-29] MEDS: MethylPREDNISolone 40 mg Vial IVP SCH ×2 (09:34→21:41)
--- NOTE | 2018-10-29 10:41 | RAD ---
Date of service: 10/28/2018 HISTORY: constipation COMPARISON: None available. FINDINGS: BOWEL: There is large amount of stool in the colon. No bowel dilatation. No obstruction. No free air. BONES: Normal. OTHER FINDINGS: Status post cholecystectomy. The lung bases are clear. IMPRESSION: Constipation. Nonobstructive bowel gas pattern.
[2018-10-29] MEDS: Sodium Chloride 0.9% 1,000 ML IV SCH ×2 (11:37→21:41)
[2018-10-29 13:52] LABS: BASO % 0.2 % (0.0-2.0); EOS % 0.1 % (0.0-4.0); HEMOGLOBIN 13.6 g/dL (11.0-16.0); LYMPH # 2.1 K/uL (1.0-4.3); LYMPH % 13.2 % (20.0-40.0); MEAN CELL VOLUME 92.4 fL (81.0-99.0); MEAN CORPUSCULAR HEMOGLOBIN 30.8 pg (27.0-31.0); MEAN CORPUSCULAR HGB CONC 33.3 g/dL (33.0-37.0); MEAN PLATELET VOLUME 10.8 fL (7.2-11.7); MONO # 0.8 K/uL (0.0-0.8); MONO % 4.9 % (0.0-10.0); NEUT # 12.9 K/uL (1.8-7.0); NEUT % 81.6 % (50.0-75.0); NRBC % 0.1 % (0.0-2.0); RBC 4.4 Mil/uL (3.80-5.20); WHITE BLOOD COUNT 15.9 K/uL (4.8-10.8)
[2018-10-29 14:14] LABS: BLOOD UREA NITROGEN 27 mg/dL (7-17); CALCIUM 8.8 mg/dl (8.6-10.4); GFR NON-AFRICAN AMERICAN > 60
--- NOTE | 2018-10-29 16:37 | CP.PCM.PN ---
Subjective - Date & Time of Evaluation Date of Evaluation: 10/29/18 Time of Evaluation: 16:37 Objective - Vital Signs/Intake and Output Vital Signs (last 24 hours): Temp Pulse Resp BP Pulse Ox 98 F 83 18 113/72 95 10/29/18 08:11 10/29/18 08:11 10/29/18 08:11 10/29/18 08:11 10/29/18 08:11 Intake and Output: 10/29/18 10/29/18 06:59 18:59 Intake Total 1260 Balance 1260 - Medications Medications: Current Medications Albuterol/Ipratropium (Duoneb 3 Mg/0.5 Mg (3 Ml) Ud) 3 ml INH RQ6 PRN PRN Reason: Shortness of Breath Aspirin (Ecotrin) 81 mg PO DAILY [facility] Last Admin: 10/29/18 09:34 Dose: 81 mg Dextrose (Dextrose 50% Inj) 0 ml IV STAT PRN; Protocol PRN Reason: Hypoglycemia Protocol Dextrose (Glutose 15) 0 gm PO ONCE PRN; Protocol PRN Reason: Hypoglycemia Protocol Docusate Sodium (Colace) 100 mg PO DAILY [facility] Last Admin: 10/29/18 12:05 Dose: 100 mg Enoxaparin Sodium (Lovenox) 40 mg SC DAILY [facility] Last Admin: 10/29/18 09:34 Dose: 40 mg Glucagon (Glucagen Diagnostic Kit) 0 mg IM STAT PRN; Protocol PRN Reason: Hypoglycemia Protocol Dextrose (Dextrose 5% In Water 1000 Ml) 1,000 mls @ 0 mls/hr IV .Q0M PRN; Protocol PRN Reason: Hypoglycemia Protocol Sodium Chloride (Sodium Chloride 0.9%) 1,000 mls @ 70 mls/hr IV .[id number] [facility] Last Admin: 10/29/18 11:37 Dose: 70 mls/hr Insulin Aspart (Novolog) 10 unit SC AC [facility] Last Admin: 10/29/18 12:05 Dose: 10 unit Insulin Glargine (Lantus) 10 unit SC HS [facility] Last Admin: 10/28/18 21:22 Dose: 10 unit Insulin Human Regular (Novolin R) 0 unit SC ACHS [facility]; Protocol Last Admin: 10/29/18 12:05 Dose: 8 unit Lisinopril (Zestril) 2.5 mg PO DAILY [facility] Last Admin: 10/29/18 09:34 Dose: 2.5 mg Metformin HCl (Glucophage) 1,000 mg PO BIDCC [facility] Last Admin: 10/29/18 08:26 Dose: 1,000 mg Methylprednisolone (Solu-Medrol) 40 mg IVP Q12 [facility] Last Admin: 10/29/18 09:34 Dose: 40 mg Morphine Sulfate (Morphine) 2 mg IV Q4 PRN PRN Reason: Pain, severe (8-10) Last Admin: 10/29/18 11:32 Dose: 2 mg Pantoprazole Sodium (Protonix Ec Tab) 40 mg PO DAILY [facility] Last Admin: 10/29/18 09:34 Dose: 40 mg Rosuvastatin Calcium (Crestor) 5 mg PO HS [facility] Last Admin: 10/28/18 21:22 Dose: 5 mg Tiotropium [place] (Spiriva) 18 mcg INH RQ24 [facility] - Labs Labs: 10/29/18 13:41 10/29/18 13:41 PT 13.0 SECONDS (9.7-12.2) H 10/25/18 15:39 INR 1.2 10/25/18 15:39 APTT 32 SECONDS (21-34) 10/25/18 15:39 Assessment and Plan (1) Asthma Status: Acute (2) Dyspnea Status: Acute (3) CN III palsy, right eye Status: Acute (4) CN palsy, right eye Status: Acute
[2018-10-29 16:48] VITALS: RESP 20
--- NOTE | 2018-10-29 16:57 | CP.PCM.PN ---
Subjective - Date & Time of Evaluation Date of Evaluation: 10/29/18 Time of Evaluation: 08:00 - Subjective Subjective: clinically same Objective - Vital Signs/Intake and Output Vital Signs (last 24 hours): Temp Pulse Resp BP Pulse Ox 98.2 F 82 20 127/75 96 10/29/18 16:46 10/29/18 16:46 10/29/18 16:46 10/29/18 16:46 10/29/18 16:46 Intake and Output: 10/29/18 10/29/18 06:59 18:59 Intake Total 1260 Balance 1260 - Medications Medications: Current Medications Albuterol/Ipratropium (Duoneb 3 Mg/0.5 Mg (3 Ml) Ud) 3 ml INH RQ6 PRN PRN Reason: Shortness of Breath Aspirin (Ecotrin) 81 mg PO DAILY [facility] Last Admin: 10/29/18 09:34 Dose: 81 mg Dextrose (Dextrose 50% Inj) 0 ml IV STAT PRN; Protocol PRN Reason: Hypoglycemia Protocol Dextrose (Glutose 15) 0 gm PO ONCE PRN; Protocol PRN Reason: Hypoglycemia Protocol Docusate Sodium (Colace) 100 mg PO DAILY [facility] Last Admin: 10/29/18 12:05 Dose: 100 mg Enoxaparin Sodium (Lovenox) 40 mg SC DAILY [facility] Last Admin: 10/29/18 09:34 Dose: 40 mg Glucagon (Glucagen Diagnostic Kit) 0 mg IM STAT PRN; Protocol PRN Reason: Hypoglycemia Protocol Dextrose (Dextrose 5% In Water 1000 Ml) 1,000 mls @ 0 mls/hr IV .Q0M PRN; Protocol PRN Reason: Hypoglycemia Protocol Sodium Chloride (Sodium Chloride 0.9%) 1,000 mls @ 70 mls/hr IV .[id number] [facility] Last Admin: 10/29/18 11:37 Dose: 70 mls/hr Insulin Aspart (Novolog) 10 unit SC AC [facility] Last Admin: 10/29/18 12:05 Dose: 10 unit Insulin Glargine (Lantus) 10 unit SC HS [facility] Last Admin: 10/28/18 21:22 Dose: 10 unit Insulin Human Regular (Novolin R) 0 unit SC ACHS [facility]; Protocol Last Admin: 10/29/18 12:05 Dose: 8 unit Lisinopril (Zestril) 2.5 mg PO DAILY [facility] Last Admin: 10/29/18 09:34 Dose: 2.5 mg Metformin HCl (Glucophage) 1,000 mg PO BIDCC [facility] Last Admin: 10/29/18 08:26 Dose: 1,000 mg Methylprednisolone (Solu-Medrol) 40 mg IVP Q12 [facility] Last Admin: 10/29/18 09:34 Dose: 40 mg Morphine Sulfate (Morphine) 2 mg IV Q4 PRN PRN Reason: Pain, severe (8-10) Last Admin: 10/29/18 11:32 Dose: 2 mg Pantoprazole Sodium (Protonix Ec Tab) 40 mg PO DAILY [facility] Last Admin: 10/29/18 09:34 Dose: 40 mg Rosuvastatin Calcium (Crestor) 5 mg PO HS [facility] Last Admin: 10/28/18 21:22 Dose: 5 mg Tiotropium [place] (Spiriva) 18 mcg INH RQ24 [facility] - Labs Labs: 10/29/18 13:41 10/29/18 13:41 PT 13.0 SECONDS (9.7-12.2) H 10/25/18 15:39 INR 1.2 10/25/18 15:39 APTT 32 SECONDS (21-34) 10/25/18 15:39 - Constitutional Appears: Well - Head Exam Head Exam: ATRAUMATIC, NORMAL INSPECTION, NORMOCEPHALIC - Eye Exam Eye Exam: EOMI, Normal appearance, PERRL Pupil Exam: NORMAL ACCOMODATION, PERRL - ENT Exam ENT Exam: Mucous Membranes Moist, Normal Exam - Neck Exam Neck Exam: Full ROM, Normal Inspection. absent: Lymphadenopathy - Respiratory Exam Respiratory Exam: Decreased Breath Sounds - Cardiovascular Exam Cardiovascular Exam: REGULAR RHYTHM, +S1, +S2 - GI/Abdominal Exam GI & Abdominal Exam: Soft, Diminished Bowel Sounds - Rectal Exam Rectal Exam: Deferred Assessment and Plan (1) CN III palsy, right eye Status: Acute (2) CN palsy, right eye Status: Acute (3) Headache Status: Acute (4) Abdominal pain Status: Acute (5) Blurry vision Status: Acute (6) Constipation Status: Acute (7) Foot ulcer Status: Acute (8) Diplopia Status: Chronic
[2018-10-29] MEDS: (Lantus) Insulin Glargine, Recombinant SC SCH (21:39)
[2018-10-29 23:52] VITALS: TEMP 98.1
[2018-10-30] MEDS: Sodium Chloride 0.9% 1,000 ML IV SCH ×2 (03:10→10:15)
[2018-10-30] MEDS: (Novolin R) Insulin Human Regular 100 units/ml vial SC SCH ×3 (06:28→12:30)
[2018-10-30 07:21] VITALS: O2SAT 97
[2018-10-30 07:33] LABS: BASO # 0.1 K/uL (0.0-0.2); BASO % 0.4 % (0.0-2.0); HEMOGLOBIN 14.1 g/dL (11.0-16.0); LYMPH # 3.1 K/uL (1.0-4.3); LYMPH % 19.1 % (20.0-40.0); MEAN CELL VOLUME 91.3 fL (81.0-99.0); MEAN CORPUSCULAR HEMOGLOBIN 30.8 pg (27.0-31.0); MEAN CORPUSCULAR HGB CONC 33.7 g/dL (33.0-37.0); MEAN PLATELET VOLUME 10.5 fL (7.2-11.7); MONO % 6.4 % (0.0-10.0); NEUT % 74.1 % (50.0-75.0); NRBC % 0.1 % (0.0-2.0); RBC 4.58 Mil/uL (3.80-5.20); WHITE BLOOD COUNT 16.2 K/uL (4.8-10.8)
[2018-10-30 08:40] LABS: ALB/GLOB RATIO 1.2 (1.0-2.1); ALBUMIN 3.8 g/dL (3.5-5.0); ALT/SGPT 25 U/L (9-52); AST/SGOT 23 U/L (14-36); BLOOD UREA NITROGEN 27 mg/dL (7-17); CALCIUM 8.6 mg/dl (8.6-10.4); GFR NON-AFRICAN AMERICAN > 60
[2018-10-30] MEDS: (Novolog) Insulin Aspart, Recombinant 100 u/ml 10 ml vial SC SCH ×2 (09:04→13:04)
[2018-10-30] MEDS: MethylPREDNISolone 40 mg Vial IVP SCH (10:14)
[2018-10-30] MEDS: Enoxaparin 40 mg Syringe SC SCH (10:14)
[2018-10-30] MEDS: Pantoprazole 40 mg EC Tab PO SCH (10:14)
[2018-10-30 15:27] VITALS: BP 112/71; PULSE 80
--- NOTE | 2018-10-30 15:43 | CP.PCM.PN ---
Subjective - Date & Time of Evaluation Date of Evaluation: 10/30/18 Time of Evaluation: 15:42 - Subjective Subjective: PATIENT SEEN AND EXAMINED Objective - Vital Signs/Intake and Output Vital Signs (last 24 hours): Temp Pulse Resp BP Pulse Ox 98.1 F 80 20 112/71 97 10/30/18 15:00 10/30/18 15:00 10/30/18 15:00 10/30/18 15:00 10/30/18 15:00 Intake and Output: 10/30/18 10/30/18 06:59 18:59 Intake Total 1470 1040 Balance 1470 1040 - Medications Medications: Current Medications Albuterol/Ipratropium (Duoneb 3 Mg/0.5 Mg (3 Ml) Ud) 3 ml INH RQ6 PRN PRN Reason: Shortness of Breath Aspirin (Ecotrin) 81 mg PO DAILY [facility] Last Admin: 10/30/18 10:14 Dose: 81 mg Dextrose (Dextrose 50% Inj) 0 ml IV STAT PRN; Protocol PRN Reason: Hypoglycemia Protocol Dextrose (Glutose 15) 0 gm PO ONCE PRN; Protocol PRN Reason: Hypoglycemia Protocol Docusate Sodium (Colace) 100 mg PO DAILY [facility] Last Admin: 10/30/18 10:14 Dose: 100 mg Enoxaparin Sodium (Lovenox) 40 mg SC DAILY [facility] Last Admin: 10/30/18 10:14 Dose: 40 mg Glucagon (Glucagen Diagnostic Kit) 0 mg IM STAT PRN; Protocol PRN Reason: Hypoglycemia Protocol Dextrose (Dextrose 5% In Water 1000 Ml) 1,000 mls @ 0 mls/hr IV .Q0M PRN; Protocol PRN Reason: Hypoglycemia Protocol Sodium Chloride (Sodium Chloride 0.9%) 1,000 mls @ 70 mls/hr IV .[id number] [facility] Last Admin: 10/30/18 10:15 Dose: Not Given Insulin Aspart (Novolog) 10 unit SC AC [facility] Last Admin: 10/30/18 13:04 Dose: 10 unit Insulin Glargine (Lantus) 10 unit SC HS [facility] Last Admin: 10/29/18 21:39 Dose: 10 unit Insulin Human Regular (Novolin R) 0 unit SC ACHS [facility]; Protocol Last Admin: 10/30/18 12:30 Dose: 8 unit Lisinopril (Zestril) 2.5 mg PO DAILY [facility] Last Admin: 10/30/18 10:14 Dose: 2.5 mg Metformin HCl (Glucophage) 1,000 mg PO BIDCC [facility] Last Admin: 10/30/18 09:04 Dose: 1,000 mg Methylprednisolone (Solu-Medrol) 40 mg IVP Q12 [facility] Last Admin: 10/30/18 10:14 Dose: 40 mg Morphine Sulfate (Morphine) 2 mg IV Q4 PRN PRN Reason: Pain, severe (8-10) Last Admin: 10/30/18 14:36 Dose: 2 mg Pantoprazole Sodium (Protonix Ec Tab) 40 mg PO DAILY [facility] Last Admin: 10/30/18 10:14 Dose: 40 mg Rosuvastatin Calcium (Crestor) 5 mg PO HS [facility] Last Admin: 10/29/18 21:39 Dose: 5 mg Tiotropium [place] (Spiriva) 18 mcg INH RQ24 [facility] - Labs Labs: 10/30/18 07:21 10/30/18 07:21 PT 13.0 SECONDS (9.7-12.2) H 10/25/18 15:39 INR 1.2 10/25/18 15:39 APTT 32 SECONDS (21-34) 10/25/18 15:39 Assessment and Plan - Assessment and Plan (Free Text) Assessment: Patient is to follow up with PMD and consultants Make an appointment to see neurologist Dr. Tejeda Patient will take medications as instructed Go to the nearest ED if symptoms worsen or persist
== END 2018-10-30 16:33 | disposition home or self-care (01) | DRG 832 ==
LOC: C.ER 13:16 → C.9E 17:23 → C.5S 19:00
PROVIDERS: ADMIT Internal Medicine Nephrology; ATTEND Internal Medicine Nephrology
DX: G45.9 Transient cerebral ischemic attack, unspecified (principal); E11.42 Type 2 diabetes mellitus with diabetic polyneuropathy; E11.621 Type 2 diabetes mellitus with foot ulcer; L97.509 Non-pressure chronic ulcer of other part of unspecified foot with unspecified severity; Z79.4 Long term (current) use of insulin; H49.01 Third [oculomotor] nerve palsy, right eye; F17.210 Nicotine dependence, cigarettes, uncomplicated; E78.5 Hyperlipidemia, unspecified; E66.9 Obesity, unspecified; J45.909 Unspecified asthma, uncomplicated; K59.00 Constipation, unspecified